=== PATIENT | male | born 1940 | race Native Hawaiian/Other Pacific Islander ===

== ENCOUNTER 2017-03-01 13:31 | Inpatient (IN) | payer OTHER ==
[~2017-03-01] VITALS: Ht 175.3 cm; Wt 64.5 kg
[~2017-03-01 13:31] MED LIST: LORA0.5T17 PO; QUET100T2 PO; SENNA-S1 TAB PO
--- NOTE | 2017-03-01 15:25 | NUR ---
PT ADMITTED FROM [facility]. PT AWAKE AND CONFUSED
[2017-03-01 15:45] VITALS: BP 142/83; TEMP 99.8
[2017-03-01 16:15] VITALS: BP 123/99
--- NOTE | 2017-03-01 16:30 | NUR ---
PT ATTEMPTING TO GET OOB. PT ASSISTED INTO CHAIR. FAMILY AT SIDE
[2017-03-01 16:41] VITALS: BP 143/93; TEMP 99.5; BMI 23.6
[2017-03-01] MEDS ORDERED: LIPITOR20 MG PO (17:27)
--- NOTE | 2017-03-01 17:30 | NUR ---
PT PULLING AT LEAD WIRES AND PRESSURE CUFF.
[2017-03-01 17:45] VITALS: BP 127/62; TEMP 97.5
--- NOTE | 2017-03-01 17:50 | NUR ---
PT ASSISTED OUT OF CHAIR, AMBULATING WITH ASSIST X1, PT LEANING BACKWARD, UNSTEADY GAIT NOTED. TOLERATED WELL.
--- NOTE | 2017-03-01 18:00 | NUR ---
BUTTOCK RED, PT CLEANED AND DRYED
--- NOTE | 2017-03-01 18:27 | NUR ---
PT CURRENTLY LYING PRONE, RESTING WITH EYES CLOSED
--- NOTE | 2017-03-01 19:15 | NUR ---
DR DALTON FINK MD REMINDED THAT PTS SODIUM WAS 154 THIS AM AND THAT PT WAS NOW RECIEVING NS @125ML/HR. NO NEW ORDERS.
--- NOTE | 2017-03-01 19:20 | NUR ---
ATIVAN 2MG GIVEN IV FOR AGITATION.
--- NOTE | 2017-03-01 19:45 | NUR ---
PT PULLING IV TUBING. PT UNABLE TO UNDERSTAND PROCEDURES AND SIGNIFICANCE OF PROCEDURES. IV RESTARTED IN RIGHT UPPER ARM WITH 20 CATHETER PER ONE ATTEMPT. NS 1000CC'S AT 125CC/HR INFUSING IN THIS SITE.
--- NOTE | 2017-03-01 20:02 | NUR ---
RESPIRATORY THERAPIST AT BEDSIDE FOR TREATMENT.
[2017-03-01 20:45] VITALS: BP 136/90; TEMP 98
--- NOTE | 2017-03-01 21:17 | NUR ---
NURSE PLACE NASAL CANNULA ON PT WHILE PT SLEEPING.
[2017-03-01] MEDS ORDERED: PANTPAK PO (22:11)
[2017-03-01] MEDS ORDERED: METAMUCIL0.52 GM OR (22:14)
[2017-03-01] MEDS ORDERED: DONE5TAB PO (22:16)
[2017-03-01] MEDS ORDERED: ARIPIPRAZOLE5 MG PO (22:16)
[2017-03-01] MEDS ORDERED: ESCI10TA PO (22:17)
[2017-03-01] MEDS ORDERED: NAMENDA5 MG OR (22:20)
[2017-03-01] MEDS ORDERED: MUCINEX600 MG OR (22:21)
[2017-03-01] MEDS ORDERED: ALUMSUS6 PO (22:29)
[2017-03-01] MEDS ORDERED: TYLENOL325 MG OR (22:30)
--- NOTE | 2017-03-01 22:43 | NUR ---
PT AWAKE PICKING AT COVERS. 02 SAT 94%. PT NOT ATTEMPTING TO REMOVE O2. NURSE AT BEDSIDE.
[2017-03-01] MEDS ORDERED: EMOLOIN22 (22:50)
[2017-03-01] MEDS ORDERED: HALO5INJ3 (22:54)
[2017-03-01] MEDS ORDERED: ACET650S18 RE (22:57)
[2017-03-01] MEDS ORDERED: ALBUSOL IN (22:58)
[2017-03-01] MEDS ORDERED: [UNRECOGNIZED DRUG - OTHER] OR (23:02)
[2017-03-02] VITALS (9 sets, daily range): BP systolic 122–178; BP diastolic 70–94; TEMP 97.8–99.8
--- NOTE | 2017-03-02 | NUR ---
RESPIRATORY THERAPIST PRESENT FOR BREATHING TREATMENT.
--- NOTE | 2017-03-02 01:22 | NUR ---
PT MUMBLING, NURSE UNABLE TO UNDERSTAND SPEECH. 02 REAPPIED PER NASAL CANNULA PAST PT PULLING OFF.
--- NOTE | 2017-03-02 02:09 | NUR ---
PT AGITATED, PULLING AT IV SITE. MEDICATED WITH ATIVAN 2MG IV ORDERED.
--- NOTE | 2017-03-02 03:17 | NUR ---
RESPIRATORY THERAPIST PRESENT FOR BREATHING TREATMENT. O2 SATURATION 90%, PULSE 80.
--- NOTE | 2017-03-02 03:30 | NUR ---
PT HAD LARGE VOID. DIAPER CHANGED. DRAW SHEET AND CHUX CHANGED. 02 SATURATION 94%. PT PULLING AT ELECTRODES AND IV TUBING. NURSE HELD PT HAND TO CALM.
[2017-03-02 06:33] LABS: PLATELET COUNT 218 K/uL (142-355)
--- NOTE | 2017-03-02 07:45 | NUR ---
AM ASSESSMENT DONE. PT RESTING QUIETLY WITH EYES CLOSED. WILL CONTINUE TO MONITOR.
[2017-03-02 07:49] LABS: POTASSIUM 3.3 mmol/L (3.6-5.2)
--- NOTE | 2017-03-02 08:15 | NUR ---
PT'S DIAPER WET THROUGH SHEET. PT CLEANED AND DRIED, SHEETS CHANGED. PT REPOSITIONED. MOUTH CARE DONE.
--- NOTE | 2017-03-02 11:15 | NUR ---
DR. HOFFMAN HERE TO SEE PT.
--- NOTE | 2017-03-02 11:45 | NUR ---
15F YUNG CATH INSERTED VIA TERRITORY DEVELOPMENT MANAGER. PT ROXANNA WELL. URINE COLLECTED CLEAR AND YELLOW AND SENT TO THE LAB.
--- NOTE | 2017-03-02 12:30 | NUR ---
PT TRYING TO GET OUT OF BED. MEDS GIVEN. WILL CONT TO MONITOR.
--- NOTE | 2017-03-02 14:15 | NUR ---
PT RESTING QUIETLY WITH EYES CLOSED. WILL CONTINUE TO MONITOR.
--- NOTE | 2017-03-02 16:00 | NUR ---
GAVE PT A BATH. ORAL CARE AND SHANNON CARE DONE. BUTTOCK CREAM APPLIED. LINENS CHANGED, GOWN PUT ON. MOUTH CARE DONE. PT REPOSITIONED.
--- NOTE | 2017-03-02 17:29 | NUR ---
FAMILY AT BEDSIDE.
--- NOTE | 2017-03-02 18:06 | NUR ---
FAMILY AT BEDSIDE. NAD NOTED AT THIS TIME.
--- NOTE | 2017-03-02 19:09 | NUR ---
PT PULLING AT IV'S AND GOWN. MEDS GIVEN ORDERED AT THIS TIME. WILL CONTINUE TO MONITOR.
--- NOTE | 2017-03-02 19:12 | NUR ---
POST TYLENOL TEMP 99.8 AT THIS TIME. WILL CONTINUE TO MONITOR.
--- NOTE | 2017-03-02 20:00 | NUR ---
RESP AT BEDSIDE GIVING BREATHING TX AT THIS TIME.
--- NOTE | 2017-03-02 20:53 | NUR ---
PT RESTING QUIETLY. NAD NOTED. WILL CONTINUE TO MONITOR.
--- NOTE | 2017-03-02 21:54 | NUR ---
O2 SAT 92% AT THIS TIME. 02 AT 2LPM VIA NC PLACED ON PT AT THIS TIME WHILE PT RESTING. WILL CONTINUE TO MONITOR.
--- NOTE | 2017-03-02 22:52 | NUR ---
100 ML BAG OF ALBUMIN SPIKED AND HUNG AT THIS TIME RUNNING BY GRAVITY.
--- NOTE | 2017-03-02 23:39 | NUR ---
PT TURNED AND REPOSITIONED AT THIS TIME. MOUTH CARE ALSO DONE AT THIS TIME. PT TOLERATED WELL. O2 AT 3LPM IN USE AT THIS TIME. PT APPEARS TO BE RESTING WELL. NAD NOTED. WILL CONTINUE TO MONITOR.
[2017-03-03] VITALS (9 sets, daily range): BP systolic 136–168; BP diastolic 73–93; TEMP 97.3–99.4
--- NOTE | 2017-03-03 00:13 | NUR ---
RESP THERAPIST AT BEDSIDE GIVING BREATHING TX
--- NOTE | 2017-03-03 00:56 | NUR ---
PT IN BED RESTING WITH EYES CLOSED. NAD NOTED. O2 AT 2LPM VIA NC IN USE AT THIS TIME. BREATHING IS EQUAL AND UNLABORED. WILL CONTINUE TO MONITOR.
--- NOTE | 2017-03-03 04:59 | NUR ---
AM LABS DRAWN AT THIS TIME. PT TOLERATED WELL. PT WAS ALSO TURNED AND REPOSITIONED AT THIS TIME. WILL CONTINUE TO MONITOR.
--- NOTE | 2017-03-03 05:41 | NUR ---
PT IN BED RESTING QUIETLY WITH EYES CLOSED. NAD NOTED. O2 AT 2LPM VIA NC IN USE AT THIS TIME. WILL CONTINUE TO MONITOR.
[2017-03-03 05:45] LABS: POTASSIUM 3.3 mmol/L (3.6-5.2)
[2017-03-03 06:14] LABS: PLATELET COUNT 187 K/uL (142-355)
--- NOTE | 2017-03-03 07:30 | NUR ---
AM ASSESSMENT DONE.
--- NOTE | 2017-03-03 08:15 | NUR ---
MOUTH CARE DONE. PT REPOSITIONED.
--- NOTE | 2017-03-03 10:00 | NUR ---
AT BEDSIDE. [facility] FOR DR. HOFFMAN HERE TO SPEAK WITH .
--- NOTE | 2017-03-03 13:27 | NUR ---
DR. RAYGOZA HERE TO SEE PT. SPEAKING WITH PT.
--- NOTE | 2017-03-03 14:09 | NUR ---
FAMILY AT BEDSIDE.
--- NOTE | 2017-03-03 16:14 | NUR ---
FAMILY AT BEDSIDE. NAD NOTED AT THIS TIME.
--- NOTE | 2017-03-03 17:14 | NUR ---
PT REPOSITIONED. WILL CONTINUE TO MONITOR.
--- NOTE | 2017-03-03 19:20 | NUR ---
PT TURNED AND REPOSITIONED AT THIS TIME. PT TOLERATED WELL. WILL CONTINUE TO MONITOR.
--- NOTE | 2017-03-03 20:06 | NUR ---
RESP AT BEDSIDE DOING TX
[2017-03-04] VITALS (30 sets, daily range): BP systolic 128–201; BP diastolic 59–91; TEMP 98.7–100.4
--- NOTE | 2017-03-04 00:31 | NUR ---
PT APPEARS RESTLESS AND IS PULLING AT COVERS AND IV. PT IS MUMBLING BUT IS NOT UNDERSTOOD. NURSE AT BEDSIDE
--- NOTE | 2017-03-04 02:12 | NUR ---
PT APPEARS AGGITATED AND IS PULLING AT GOWN AND IVS. PT ATTEMPTED TO GET OOB. MEDICATION ADMINISTERED AT THIS TIME PRESCRIBED.
--- NOTE | 2017-03-04 02:54 | NUR ---
PT TURNED AND REPOSOTIONED. MOUTH CARE ALSO DONE. PT TOLERATED WELL. PT APPEARS CALMER THAN EARLIER IN THE SHIFT. HYDRO STATION SUPERVISOR LEADS AND O2 REAPPLIED AT THIS TIME. PT IS NOT ATTEMPTING TO REMOVE THEM. BED IS LOCKED AND IN LOWEST POSITION WITH SIDE RAILS UP. WILL CONTINUE TO MONITOR.
--- NOTE | 2017-03-04 05:45 | NUR ---
AM LABS DRAWN AT THIS TIME
[2017-03-04 06:10] LABS: PLATELET COUNT 201 K/uL (142-355)
[2017-03-04 06:48] LABS: POTASSIUM 3.6 mmol/L (3.6-5.2)
--- NOTE | 2017-03-04 07:39 | NUR ---
RECIEVED REPORT AM ASSESSEMENT DONE REMOVED EXTRA BLANKETS TEMP 99.8 AX. SAT 92% REPLACED O2 AT 2L NC. SCATTERED COARSE RONCHI THROUGH OUT LUNG CARREON. BOTH SIDES. PT DROWSY. MOANING AT TIME. PT SCHEDULED FOR PEG THIS AM FAMILY MEMBERS HERE.
--- NOTE | 2017-03-04 08:08 | NUR ---
FAMILY MEMBERS AT BEDSIDE, OR CREW HERE, PT TO OR VIA BED FOR PEG INSERTION. IV FLUIDS REMAIN. PT WITH O2 AT 2L. REPORT TEMP 99.8 AX TO OR CREW.
--- NOTE | 2017-03-04 09:10 | NUR ---
RECIEVED REPORT PT BACK FROM OR. HOB UP MOANING, COARSE BREATH SOUNDS. HOB UP MOUTH CARE DONE, SMALL FOOD PARTICLES FOUND BACK OF MOUTH. ON MONITOR, RESUME IV FLUIDS. N RECIEVED AM MEDS ORDERED.
--- NOTE | 2017-03-04 09:30 | NUR ---
PT MOANING, NO FACIAL GRIMACE, MOANING OUT SPOKE WITH DR RAYGOZA. RECIEVED ORDER FOR MORPHINE 1 MG. HOB UP WEARING O2 AT 2L SAT 93%.
--- NOTE | 2017-03-04 10:22 | NUR ---
PT MOANING LESS AND LESS MORPHINE HELD FOR NOW PT HAS CALM DOWN. DRESSING TO PEG INACT DRY CLEAN INTACT. PT RESTING QUIETLY. IV FLUIDS CONTINUE. JOEY HOFFMAN'S NURSE VISITED.
--- NOTE | 2017-03-04 12:00 | NUR ---
DR HOFFMAN VISITED. WILL COME BACK. PT REPOSITIONED IN BED HOB UP CONTINUES TO SAT WELL SAT 98% WEARING O2 AT 2L NC. RESP IRREGULAR. RECIEVED BREATHING TX BREATH SOUNDS CLEAR. B/P 142/75. SHANNON CARE DONE. PEG DRAINING TO GRAVITY GREEN COLORED EMESIS.
--- NOTE | 2017-03-04 14:00 | NUR ---
PT TURNED AND REPOSITIONED , FAMILY MEMBERS HERE FOR VISIT. PT RESPONDING TO THEM SOME. SAYING A FEW WORDS. WILL NOT LEAVE O2 ON SAT 94% ROOM AIR, BREATH SOUNDS IMPROVED AFTER COUGHING AND SUCTION THIS AM DRESSING TO ABD INTACT PT WILL REACH FOR TUBE. TUBE COVERED.
--- NOTE | 2017-03-04 16:00 | NUR ---
PT FROWNING RECIEVED MORPHINE 1 MG FOR PAIN PT A LITTLE RESTLESS, PULLED AT TUBE PEG. INTACT AND REDRESS SITE, SMALL AMOUT DRIED BLOOD, DRAINING SMALL AMOUNT EMESIS GREEN COLORES TO GRAVITY DRAINAGE AT BED SIDE. PT TURNED TO LEFT SIDE MOUTH CARE DONE. BED BATH SKIN CARE DONE.
--- NOTE | 2017-03-04 17:08 | NUR ---
RESTING ON LEFT SIDE RESP IRREGULAR AT TIMES SAT 97% WEARING 02 AT 2L NC. IV FLUIDS INFUSING WITHOUT DIFFICULTY. EJ FROM SPEECH THERAPY VISITED. PT TO REMAIN NPO STATUS.
--- NOTE | 2017-03-04 18:05 | NUR ---
PATIENT AWAKE TALKING A LITTLE HARD TO UNDERSTAND PICKING AT IV LINES, PULLED O2 OFF, WILL NOT WEAR O2 SAT 92% ON ROOM AIR. HOB UP. BLANKET COVERED PEG TUB AND YUNG TUBE SO PT WILL NOT PULL ON THEM. RECIEVED IV MEDS ORDERED. PT REMAINS NPO. FREQUENT MOUTH CARE.
--- NOTE | 2017-03-04 19:30 | NUR ---
CALLED TO CHECK ON PATIENT CONDITION. ADVISED SHE WOULD BE BACK TO VISIT TOMORROW MORNING.
[2017-03-05] VITALS (23 sets, daily range): BP systolic 94–169; BP diastolic 70–99; TEMP 99–99.6
--- NOTE | 2017-03-05 02:18 | NUR ---
PATIENT REPOSITIONED IN BED, ALL LINES AND LEADS REATTACHED. PATIENT LAYING ON BACK PULLING AT COVERS AND LINES. NO ACUTE DISTRESS NOTED.
--- NOTE | 2017-03-05 06:00 | NUR ---
BLOOD DRAWN AND SENT TO LAB. NO COMPLICATIONS. NO ACUTE DISTRESS NOTED.
[2017-03-05 06:27] LABS: PLATELET COUNT 212 K/uL (142-355)
[2017-03-05 06:53] LABS: POTASSIUM 3.9 mmol/L (3.6-5.2)
--- NOTE | 2017-03-05 07:25 | NUR ---
RESTING QUIETLY HOB UP AM ASSESSEMENT DONE. PT PULLING AT MEDICAL LINES. IV LINE HIDDEN PEG COVERED.
--- NOTE | 2017-03-05 09:57 | NUR ---
PATIENT TURNED AND REPOSITIONED IN BED HOB UP. PATIENT CALLING OUT, CHEST X RAY DONE. FAMILY MEMBERS HERE TO VISIT.
--- NOTE | 2017-03-05 10:34 | NUR ---
PT RESTLESS PULLING AT IV LINES. PT'S FELT LIKE HE MAY BE GETTING AGITATED. ATIVAN 2 MG IV FOR AGITATION. JOEY, DR HOFFMAN'S NURSE VISITED.
--- NOTE | 2017-03-05 12:45 | NUR ---
RESTING QUIETLY AFTER BATH. MEDS EFFECTIVE RESTING ON LEFT SIDE. WEARING O2 AT 2 L NC. PT'S VISITED.
--- NOTE | 2017-03-05 13:24 | NUR ---
DR HOFFMAN VISITED CHECKED PT. WILL BEGAN TO FEED PT AFTER DIET CONSULT DONE. PT RESTING QUIETLY, HOB UP. VISITED.
--- NOTE | 2017-03-05 14:30 | NUR ---
PT TURNED TO RIGHT SIDE TURN FROM SIDE TO SIDE TRIED TO KEEP OFF BACK. PT RESTING WELL THIS AFTERNOON. WOUND CARE TO COCCYX STAGE 2 DECUB APPLIED OINT LEFT OPEN TI AIR APPEARS TO BE IMPROVING.
--- NOTE | 2017-03-05 16:33 | NUR ---
DIET UNABLE TO SEE PT UNTIL TOMORROW REPORT TO DR HOFFMAN. RECIEVED ORDERS PT UP IN BED CHECKED RESIDUAL NONE. RECIEVED 1/2 CAN 2 YANA FOLLOWED BY 60 ML WATER FED BY GRAVITY ROXANNA WELL HOB UP. EJ FROM SPEECH THERAPY VISITED, AT BEDSIDE OBSERVED FEEDING.
--- NOTE | 2017-03-05 17:00 | NUR ---
RESTING IN BED FAMILY BACK FOR VISIT. MOUTH CARE DONE. PT ROXANNA FEEDING WELL NO PROBLEMS NOTED.
--- NOTE | 2017-03-05 19:20 | NUR ---
RCD PT ORIENTED TO NAME BUT LETHARGIC HOB ELEVATED,REFUSES O2 PULLS OFF O2 SAT 96% .MONITOR SR PEG DRESSSING CLEAN/DRY.
--- NOTE | 2017-03-05 20:00 | NUR ---
TURNED AND POSITIONED WENT HOME RESTLESS PULLING AT RASHMI YUNG, IV TUBING MONITOR SR.
--- NOTE | 2017-03-05 21:38 | NUR ---
PT SHAKING SIDE RAILS. ATIVAN 2MG GIVEN IV
--- NOTE | 2017-03-05 22:00 | NUR ---
1/2 CAN PRO YANA GIVEN VIA PEG TUBE. FLUSHED WITH 60CC'S H2O. PT HAD SMALL B.M. CLEANED,
--- NOTE | 2017-03-05 23:28 | NUR ---
PT RESTING WITH EYES CLOSED AT PRESENT.
[2017-03-06 01:00] VITALS: BP 138/75; TEMP 99
[2017-03-06 02:00] VITALS: BP 118/65
--- NOTE | 2017-03-06 03:56 | NUR ---
650mg tylenol rectal suppository given rectally for axillary temp of 100.0
--- NOTE | 2017-03-06 04:00 | NUR ---
RESIDUAL 15CC'S. PT GIVEN 1/2 CAN TWO YANA GIVEN VIA PEG TUBE, FLUSHED WITH 60CC'S H20.
--- NOTE | 2017-03-06 05:20 | NUR ---
LABS DRAWN. TO LAB
[2017-03-06 05:47] LABS: PLATELET COUNT 258 K/uL (142-355)
[2017-03-06 05:57] LABS: POTASSIUM 3.9 mmol/L (3.6-5.2)
--- NOTE | 2017-03-06 07:30 | NUR ---
AM ASSESSMENT DONE.
[2017-03-06 08:08] VITALS: BP 128/83; TEMP 97.8
--- NOTE | 2017-03-06 09:00 | NUR ---
10ML OF RESIDUAL IN PEG TUBE. MED GIVEN AND FLUSHED WITH 60ML OF WATER. FED PT 1/2 CAN OF 2 YANA AND FLUSHED WITH 60ML OF WATER. PT ROXANNA WELL.
--- NOTE | 2017-03-06 09:14 | NUR ---
PT REPOSITIONED. WILL CONTINUE TO MONITOR.
--- NOTE | 2017-03-06 11:00 | NUR ---
MOUTH CARE DONE. SHANNON CARE DONE. GAVE PT A BATH. CHANGED BED LINENS AND GOWN. PT REPOSITIONED.
[2017-03-06 12:00] VITALS: BP 158/92; TEMP 101
--- NOTE | 2017-03-06 12:00 | NUR ---
AX TEMP 101. WILL MEDICATE.
--- NOTE | 2017-03-06 13:00 | NUR ---
AX TEMP 100. WILL CONTINUE TO MONITOR.
--- NOTE | 2017-03-06 13:45 | NUR ---
DR. HOFFMAN HERE TO SEE PT.
--- NOTE | 2017-03-06 14:20 | NUR ---
PT COUGHING AND CHOKING ON SECRETIONS. PT SUCTIONED. PT ROXANNA WELL. WILL CONTINUE TO MONITOR.
--- NOTE | 2017-03-06 15:45 | NUR ---
LAB HERE FOR BLOOD CULTURES.
[2017-03-06 16:00] VITALS: BP 132/70; TEMP 99.8
[2017-03-06 16:11] VITALS: BP 143/97; TEMP 97.5; BMI 24.0
--- NOTE | 2017-03-06 17:57 | NUR ---
PT REPOSITIONED. WILL CONTINUE TO MONITOR.
--- NOTE | 2017-03-06 18:06 | NUR ---
PT HAD A VERY SMALL BM. PT CLEANED.
[2017-03-07] VITALS (7 sets, daily range): BP systolic 111–140; BP diastolic 60–84; TEMP 98.2–100
--- NOTE | 2017-03-07 00:15 | NUR ---
No residual noted with pegtube. 25cc of H2O plus 1/2 can of Jevity 1.5 and 25cc of H20 given to Pt through pegtube without difficulty. Pt tolerated well.
--- NOTE | 2017-03-07 05:45 | NUR ---
No residual noted at Pegtube. Pt's pegtube flushed with 25ml of H2O and fed 1 can of Jevity and flushed with 25cc of H2O without difficulty. Pt tolerated well and no residual noted after feeding.
[2017-03-07 06:14] LABS: PLATELET COUNT 244 K/uL (142-355)
[2017-03-07 06:25] LABS: POTASSIUM 3.7 mmol/L (3.6-5.2)
--- NOTE | 2017-03-07 07:30 | NUR ---
AM ASSESSMENT DONE.
--- NOTE | 2017-03-07 09:00 | NUR ---
30ML RESIDUAL. MEDS GIVEN AND FLUSHED WITH WATER.
--- NOTE | 2017-03-07 11:11 | NUR ---
FAMILY AT BEDSIDE.
--- NOTE | 2017-03-07 11:40 | NUR ---
DR. HOFFMAN HERE TO SEE PT.
--- NOTE | 2017-03-07 12:15 | NUR ---
IV TO R UPPER ARM D/C'D WITH TIP INTACT PRESSURE DRESSING APPLIED. IV STARTED IN R FA WITH A 22G X 5 IVFS INFUSING WITHOUT ANY PROBLEMS.
--- NOTE | 2017-03-07 12:25 | NUR ---
RESIDUAL 60ML. FEEDING HELD AT THIS TIME. WILL CONTINUE TO MONITOR.
--- NOTE | 2017-03-07 13:15 | NUR ---
PT MOANING. PT HAS NOT HAD A BM IN A FEW DAYS EXCEPT A SMALL ONE LAST NIGHT. PT ACTS LIKE HIS ABD HURTS. DR. HOFFMAN NOTIFIED. RECEIVED NEW ORDER.
--- NOTE | 2017-03-07 13:30 | NUR ---
RAD AT BEDSIDE FOR KUB.
--- NOTE | 2017-03-07 14:10 | NUR ---
JOSE RESULTS REPORTED TO DR. HOFFMAN. NO NEW ORDERS.
--- NOTE | 2017-03-07 15:46 | NUR ---
GAVE REPORT TO RIGOBERTO BAUER RN.
--- NOTE | 2017-03-07 16:20 | NUR ---
RESIDUAL 15ML. FED PT 1/2 CAN JEVITY 1.5 AND FLUSHED WITH 60ML OF H2O BEFORE AND AFTER. PT ROXANNA WELL.
--- NOTE | 2017-03-07 16:45 | NUR ---
ABD BINDER PLACED ON PT TO PROTECT PEG TUBE. REPOSITIONED PT.
--- NOTE | 2017-03-07 17:05 | NUR ---
PT TRANSFERRED TO ROOM 1112 VIA BED IN STABLE COND. ORIENTED PT'S FAMILY TO ROOM SURROUNDINGS.
--- NOTE | 2017-03-07 23:20 | NUR ---
TYLENOL 650 MG SUPP ADMINISTERED AT THIS TIME FOR TEMP OF 99.8 AXILLARY
--- NOTE | 2017-03-07 23:40 | NUR ---
PEG TUBE FEEDING ADMINISTERED AT THIS TIME. NO RESIDUAL NOTED. FLUSHED WITH 60 CC'S OF H2O BEFORE AND AFTER FEEDING. FEEDING WITH 1 CAN OF JEVITY 1.5. PT TOLERATED WELL. IS AT THE BEDSIDE. VOICES NO COMPLAINTS AT THIS TIME. WILL CONTINUE TO MONITOR.
[2017-03-08] VITALS: BP 117/65; TEMP 100
[2017-03-08 04:00] VITALS: BP 123/67; TEMP 99.6
[2017-03-08 05:26] LABS: POTASSIUM 3.9 mmol/L (3.6-5.2)
[2017-03-08 05:27] LABS: PLATELET COUNT 250 K/uL (142-355)
[2017-03-08 07:57] VITALS: BP 180/75; TEMP 98.8
[2017-03-08 11:53] VITALS: BP 172/84; TEMP 100.3
[2017-03-08 15:50] VITALS: BP 135/76; TEMP 101.9
--- NOTE | 2017-03-08 19:39 | NUR ---
PT RUNNING A TEMP @ 1200 OF 100.3 AXILLARY, TYLENOL SUPPOSITORY GIVEN @ 1245, RECHECKED TEMP NUMEROUS TIMES, TEMP REMAINS THE SAME, @ 1530 TEMP CHECKED RECTALLY PER DR HOFFMAN'S ORDER, TEMP COMING DOWN.
--- NOTE | 2017-03-08 19:43 | NUR ---
@0906 DUODERM APPLIED TO COCCYX PER DR ORDER, STAGE 2 DECUBITUS TO SACRAL AREA NOTED DURING SHIFT ASSESSMENT, WILL CONTINUE TO MONITOR AND PASS ON INFO AT SHIFT CHANGE
[2017-03-08 20:00] VITALS: BP 114/71; TEMP 99.6
--- NOTE | 2017-03-08 22:52 | NUR ---
PT WAS CHECKED ON AT 2009 NO TREATMENT NEEDED AT THIS TIME PATIENT WAS CLEAR O2 SAT 96%
[2017-03-09] VITALS: BP 96/65; TEMP 98.7
--- NOTE | 2017-03-09 00:45 | NUR ---
03/09/17 0030 OXYGEN PLACED ON PATIENT 02 SAT 91-92 PERCENT.RESPIRATORY PRESENT IN ROOM FOR BREATHING TREATMENT.RESPIRATORY SAID PATIENT KEEPS PULLING OFF OXYGEN OUT OF NOSE SO SHE TOOK OXYGEN OFF.NAD NOTED.BROTHER PRESENT AT BEDSIDE.CC
--- NOTE | 2017-03-09 01:00 | NUR ---
03/08/171999 BLOOD SUGAR 151.CC
--- NOTE | 2017-03-09 02:40 | NUR ---
03/09/17 0010 PEG TUBE CHECKED 5ML RESIDUAL IN TUBE.FLUSHED WITH 60ML H20.PEG TUBE FEEDING GIVEN PER GRAVITY TOLERATED WELL.FLUSHED PEG TUBE WITH 120ML H20 TOLERATED WELL. REPOSTIONED PATIENT FOR COMFORT.PATIENT DROWSY BUT DOES AROUSES WHEN TOUCHED AND MOVED.CC
[2017-03-09 04:00] VITALS: BP 135/74; TEMP 98.4
[2017-03-09 05:57] LABS: PLATELET COUNT 250 K/uL (142-355)
[2017-03-09 06:00] LABS: POTASSIUM 3.9 mmol/L (3.6-5.2)
[2017-03-09 08:00] VITALS: BP 134/65; TEMP 98.6
[2017-03-09 12:00] VITALS: BP 155/71; TEMP 97.9
[2017-03-09 16:00] VITALS: BP 149/73; TEMP 98.2
[2017-03-09 20:05] VITALS: BP 158/81; TEMP 98.4
[2017-03-10] VITALS: BP 164/73; TEMP 97.8
--- NOTE | 2017-03-10 03:17 | NUR ---
03/10/17 0100 PEG TUBE RESIDUAL CHECKED 5ML PULLED BACK WHEN CHECKED.FLUSHED PEG TUBE WITH 60ML H20.JEVITY 1.5 CAN GIVEN BY GRAVITY TOLERATED WELL.FLUSHED PEG TUBE WITH 90ML H20 TOLERATED.PT BRIEF CHANGED WITH STOOL LIGHT BROWN IN COLOR.TURNED AND REPOSTIONED DUODERM TO COCCYX INTACT.S/O PRESENT AT BEDSIDE.CC
[2017-03-10 04:00] VITALS: BP 126/65; TEMP 98.2
[2017-03-10 06:34] LABS: PLATELET COUNT 283 K/uL (142-355)
--- NOTE | 2017-03-10 06:54 | NUR ---
03/10/17 0654 TURNED AND REPOSTIONED ALERT LOOKING AROUND NAD NOTED.CC
[2017-03-10 07:24] LABS: POTASSIUM 3.6 mmol/L (3.6-5.2); SODIUM 135 mmol/L (136-145)
[2017-03-10 08:00] VITALS: BP 155/74; TEMP 98.9
[2017-03-10 12:00] VITALS: BP 142/92; TEMP 99.2
[2017-03-10 16:00] VITALS: BP 136/77; TEMP 100
[2017-03-10 20:00] VITALS: BP 159/87; TEMP 98.1
[2017-03-11] VITALS: BP 174/95; TEMP 98.5
[2017-03-11 04:00] VITALS: BP 136/71; TEMP 97.9
[2017-03-11 06:12] LABS: PLATELET COUNT 305 K/uL (142-355)
[2017-03-11 06:23] LABS: POTASSIUM 3.7 mmol/L (3.6-5.2); SODIUM 136 mmol/L (136-145)
[2017-03-11 08:00] VITALS: BP 130/78; TEMP 99.1
[2017-03-11 11:53] VITALS: BP 124/78; TEMP 98.9
[2017-03-11 16:00] VITALS: BP 145/77; TEMP 99.5
[2017-03-11 20:00] VITALS: BP 180/75; TEMP 99.2
[2017-03-12] VITALS: BP 178/94; TEMP 99.2
--- NOTE | 2017-03-12 01:39 | NUR ---
PEG TUBE FEEDING ADMINISTERED AT THIS TIME. NO RESIDUAL NOTED. 1 CAN OF JEVITY 1.5 ADMINISTERED WITH A 60 ML FLUSH OF H20 BEFORE AND AFTER. PT TOLERATED WELL. HOB ELEVATED AT THIS TIME. WILL CONTINUE TO MONITOR.
[2017-03-12 04:00] VITALS: BP 163/78; TEMP 98.8
[2017-03-12 07:27] LABS: PLATELET COUNT 319 K/uL (142-355)
[2017-03-12 07:44] LABS: POTASSIUM 3.9 mmol/L (3.6-5.2); SODIUM 134 mmol/L (136-145)
[2017-03-12 08:00] VITALS: BP 182/86; TEMP 98.8
[2017-03-12 11:57] VITALS: BP 184/93; TEMP 97.5
[2017-03-12 16:00] VITALS: BP 188/94; TEMP 98
[2017-03-12 20:00] VITALS: BP 162/82; TEMP 98.5
[2017-03-13] VITALS: BP 164/96; TEMP 98.7
--- NOTE | 2017-03-13 01:15 | NUR ---
PEG TUBE FEEDING ADMINISTERED AT THIS TIME. NO RESIDUAL NOTED. FLUSHED WITH 60 MLS OF H20 BEFORE AND AFTER FEEDING. PT TOLERATED WELL. HOB ELEVATED.
[2017-03-13 04:00] VITALS: BP 180/89; TEMP 98.3
[2017-03-13 07:16] LABS: PLATELET COUNT 315 K/uL (142-355)
[2017-03-13 08:00] VITALS: BP 148/87; TEMP 98.7
[2017-03-13 08:36] LABS: POTASSIUM 4.2 mmol/L (3.6-5.2); SODIUM 136 mmol/L (136-145)
[2017-03-13 12:00] VITALS: BP 151/83; TEMP 98.8
--- NOTE | 2017-03-13 16:21 | NUR ---
IV D/C'd. DISCHARGE INSTRUCTIONS SIGNED AND GIVEN Pt. TO TRANSFERRED BY [facility] TO [facility].
== END 2017-03-13 16:21 | disposition home or self-care (01) | DRG 193 ==
LOC: ICU 13:31 → MED/SURG 03-07 17:05
PROVIDERS: Emergency Medicine; Internal Medicine; ADMIT Psychiatry & Neurology Addiction Psychiatry
PROC: 0DH63UZ Insertion of Feeding Device into Stomach, Percutaneous Approach (ICD-10-PCS; principal; 2017-03-04)
DX: J18.8 Other pneumonia, unspecified organism (principal); L89.153 Pressure ulcer of sacral region, stage 3; E87.0 Hyperosmolality and hypernatremia; R13.12 Dysphagia, oropharyngeal phase; K44.9 Diaphragmatic hernia without obstruction or gangrene; K29.60 Other gastritis without bleeding; G30.8 Other Alzheimer's disease; F02.80 Dementia in other diseases classified elsewhere, unspecified severity, without behavioral disturbance, psychotic disturbance, mood disturbance, and anxiety; R53.1 Weakness; E83.41 Hypermagnesemia; E88.09 Other disorders of plasma-protein metabolism, not elsewhere classified; E87.6 Hypokalemia; R50.9 Fever, unspecified; R62.7 Adult failure to thrive
CPT/HCPCS: 36415; 80053; 80200; 80202; 82272; 82570; 82948; 83735; 84300; 84540; 85027; 87015; 87040; 87045; 87205; 87328; 87329; 87899; 94640; 94664; 94760; 96372; J1450; J1630; J1650; J2001; J2060; J2270; J2704; J3010; J3260; J3480; J3490; P9047

== ENCOUNTER 2017-03-20 11:30 | Inpatient (IN) | payer OTHER ==
[~2017-03-20 11:30] MED LIST changes: +ACET650S18 RE; +ALBUSOL IN; +ALUMSUS6 PO; +ARIPIPRAZOLE5 MG PO; +DONE5TAB PO; +EMOLOIN22; +ESCI10TA PO; +HALO5INJ3; +LIPITOR20 MG PO; +METAMUCIL0.52 GM OR; +MUCINEX600 MG OR; +NAMENDA5 MG OR; +PANTPAK PO; +TYLENOL325 MG OR; +[UNRECOGNIZED DRUG - OTHER] OR
== END 2017-03-26 13:02 | disposition still patient (30) ==
LOC: PAVC 11:30
PROVIDERS: ADMIT Internal Medicine
DX: M62.81 Muscle weakness (generalized) (principal); R13.12 Dysphagia, oropharyngeal phase; L89.312 Pressure ulcer of right buttock, stage 2; R47.02 Dysphasia; Z93.1 Gastrostomy status; L89.150 Pressure ulcer of sacral region, unstageable
CPT/HCPCS: 80053; 80061; 85027; 87081

== ENCOUNTER 2017-03-22 04:24 | Outpatient (CLI) | payer OTHER ==
[2017-03-22 06:36] LABS: POTASSIUM 3.7 mmol/L (3.6-5.2); SODIUM 136 mmol/L (136-145)
[2017-03-22 06:56] LABS: PLATELET COUNT 173 K/uL (142-355)
== END 2017-03-22 19:12 | disposition home or self-care (01) ==
LOC: LAB 04:24
PROVIDERS: Internal Medicine
DX: D50.8 Other iron deficiency anemias (principal); E78.4 Other hyperlipidemia; Z13.89 Encounter for screening for other disorder
CPT/HCPCS: 80053; 80061; 85027; 87081

== ENCOUNTER 2017-03-26 14:20 | Inpatient (IN) | payer OTHER | END 2017-04-26 10:01 | disposition still patient (30) | LOC: PAVC 14:20 | PROVIDERS: ADMIT Internal Medicine | DX: M62.81 Muscle weakness (generalized) (principal); R13.12 Dysphagia, oropharyngeal phase; L89.312 Pressure ulcer of right buttock, stage 2; R47.02 Dysphasia; Z93.1 Gastrostomy status; L89.150 Pressure ulcer of sacral region, unstageable | CPT/HCPCS: 87081 ==

== ENCOUNTER 2017-03-29 18:09 | Emergency (ER) | payer OTHER ==
[~2017-03-29] VITALS: Ht 175.3 cm; Wt 63.0 kg
[2017-03-29 19:32] LABS: PLATELET COUNT 243 K/uL (142-355)
[2017-03-29 19:36] LABS: POTASSIUM 3.9 mmol/L (3.6-5.2); SODIUM 134 mmol/L (136-145)
[2017-03-29 20:16] VITALS: BP 110/55; TEMP 98.8
== END 2017-03-29 20:32 | disposition home or self-care (01) ==
LOC: ED 18:09
PROVIDERS: Specialist
PROC: 0T9B70Z Drainage of Bladder with Drainage Device, Via Natural or Artificial Opening (ICD-10-PCS; principal; 2017-03-29)
DX: J90 Pleural effusion, not elsewhere classified (principal); T17.820A Food in other parts of respiratory tract causing asphyxiation, initial encounter; K94.29 Other complications of gastrostomy
CPT/HCPCS: 36415; 36600; 51702; 80053; 81000; 82550; 82553; 82805; 83735; 84484; 85027; 96374; 99284

== ENCOUNTER 2017-04-01 04:59 | Outpatient (CLI) | payer OTHER ==
[2017-04-01 06:36] LABS: PLATELET COUNT 197 K/uL (142-355)
== END 2017-04-01 19:17 | disposition home or self-care (01) ==
LOC: LAB 04:59
PROVIDERS: Internal Medicine
DX: R06.02 Shortness of breath (principal)
CPT/HCPCS: 81000; 85027

== ENCOUNTER 2017-04-01 13:13 | Inpatient (IN) | payer OTHER ==
[~2017-04-01] VITALS: Ht 175.3 cm; Wt 66.8 kg
--- NOTE | 2017-04-01 12:55 | NUR ---
PT TO [facility] B[facility] FROM [facility],DIRECT ADMIT FROM [facility] WITH DX LLL PNEUMONIA.HX DEMENTIA. COLOR PINK,SKIN W/D,RESSP EVEN & UNLABORED. AT BS.
--- NOTE | 2017-04-01 13:03 | NUR ---
ASSESMENT PART ONE PER MO BOSS RN & IV INSERTED X 1 22G INSYTE L FA X 1 STICK. REMAINS AT BS.
[2017-04-01 13:52] VITALS: BP 108/63; TEMP 98.6; Ht 175.3 cm; Wt 66.8 kg
--- NOTE | 2017-04-01 15:29 | NUR ---
CULTURE OF DECUBITUS SACRAL AREA PER [facility] DEPUTY REGISTER OF DEEDS.
[2017-04-01 15:57] VITALS: BP 112/61; TEMP 100.2
--- NOTE | 2017-04-01 17:30 | NUR ---
PT RESTING WITH EYES CLOSED, ANTIBIOTIC INFUSING PER ORDER.FAMILT AT BS.
--- NOTE | 2017-04-01 18:04 | NUR ---
DR RAYGOZA NOTIFIED OF CONSULT DECUBITUS ON SACRUM.
--- NOTE | 2017-04-01 18:28 | NUR ---
PHARM Melodie CALLED TO [facility] ON ROCEPHIN ORDER & MEDS PROFILED ALLERGIES FOR PT. AFTER TALKING WITH PT & PT TALKING WITH HER MOTHER,REPORTED BACK TO [facility]/HIRAL THAT PT HAD TAKEN ROCEPHIN BEFORE.
--- NOTE | 2017-04-01 18:30 | NUR ---
PT WITH NO VOID SINCE ADMIT. REPORTED TO DR RENO. NEW ORDERS.
--- NOTE | 2017-04-01 18:50 | NUR ---
16FR YUNG INSERTED WITHOUT PROBLEMS WITH IMEDIATE RETURN OF MEDIUM YELLOW URINE. SCDS &TEDS TO LEGS BILATERAL.
[2017-04-01 20:00] VITALS: BP 102/62; TEMP 98.3
[2017-04-02] VITALS: BP 133/71; TEMP 99.6
--- NOTE | 2017-04-02 02:17 | NUR ---
04/01/172049 NIGHT MEDICATION GIVEN.PT GIVEN 60ML FLUSH THEN GIVEN 1/2 CAN OF JEVITY 1.5.FLUSHED WITH ADDITIONAL 60ML WATER TOLERATED WELL.PT S/O STATED SHE THINKS HER IS GETTING TO MUCH OF THE G-TUBE FEEDING AT ONE TIME.TOLD PATIENT THAT I WILL GIVE ONLY 1/2 CAN TONIGHT TO SEE HOW HE WILL TOLERATE IT AND MAY INCREASE IN AM.CC
[2017-04-02 04:00] VITALS: BP 137/47; TEMP 99.6
--- NOTE | 2017-04-02 05:54 | NUR ---
04/02/17 0550 REPOSTIONED PT GRIMMACING HE IS HURTING WHEN MOVED.WILL GIVE SOMETHING FOR PAIN PT ASKED IF HURTING HE SAID I RECKON.CC
[2017-04-02 06:30] LABS: PLATELET COUNT 260 K/uL (142-355)
[2017-04-02 06:48] LABS: POTASSIUM 3.6 mmol/L (3.6-5.2); SODIUM 134 mmol/L (136-145)
[2017-04-02 08:59] VITALS: BP 103/61; TEMP 98.9
--- NOTE | 2017-04-02 11:53 | NUR ---
10ML RESIDUAL OBSERVED AND REPLACED. FLUSHED PEG WITH 60ML OF WATER. MEDICATIONS AND JEVITY 1.2 1 CAN GIVEN. FLUSHED WITH ANOTHER 60ML OF WATER. PT TOLERATED WELL.
[2017-04-02 12:08] VITALS: BP 141/63; TEMP 99.5
--- NOTE | 2017-04-02 15:05 | NUR ---
DR RAYGOZA IN SEEING WOUND FOR CONSULT. 4X4 FLUFF GAUZE REMOVED. FOUL SMELLING BROWNISH DRAINAGE OBSERVED TO DRESSING. DIME SIZE OPENING OBSERVED TO LARGE SACRAL WOUND. REDNESS OBSERVED AROUND WOUND EXTENDING TO LEFT AND RIGHT BUTTOCK. STATED WILL TAKE TO OR FOR WOUND DEBRIDEMENT.
[2017-04-02 16:39] VITALS: BP 116/65; TEMP 102.5
--- NOTE | 2017-04-02 16:40 | NUR ---
PT TO OR FOR WOUND DEBRIDEMENT
--- NOTE | 2017-04-02 17:50 | NUR ---
PT BACK FROM OR
[2017-04-02 21:40] VITALS: BP 111/66; TEMP 100.4
[2017-04-03 00:04] VITALS: BP 117/52; TEMP 98.8
--- NOTE | 2017-04-03 01:34 | NUR ---
04/02/17 2250 PT GRIMMACING SLIGHTY PULLING AT GOWN,PAIN MEDICATION GIVEN PER PEG TUBE.PEG TUBE FEEDING GIVEN JEVITY 1.5 FLUSHED WITH 60ML H20 WATER BEFORE AND FLUSHED WITH 60ML WATER TOLERATED WELL.TURNED AND REPOSTIONED,DSY TO COCCYX INTACT WITH SEROSANGIOUS DRAINAGE WITH SMALL AMOUNT BRIGHT RED BLOOD.DSY REINFORCED WITH 4X4 SECURED WITH PAPER TAPE.S/O PRESENT AT BEDSIDE.CC
[2017-04-03 05:55] LABS: PLATELET COUNT 241 K/uL (142-355)
[2017-04-03 06:01] VITALS: BP 150/70; TEMP 98.5
[2017-04-03 06:16] LABS: POTASSIUM 3.4 mmol/L (3.6-5.2); SODIUM 140 mmol/L (136-145)
--- NOTE | 2017-04-03 06:39 | NUR ---
04/03/17 0630 TURNED AND REPOSTIONED PT HAD SMALL BM TODAY BROWN IN COLOR.CC
[2017-04-03 08:00] VITALS: BP 164/77; TEMP 99.4
--- NOTE | 2017-04-03 09:30 | NUR ---
REMOVED CLONIDINE PATCH FROM R SHOULDER AND NEW PATCH APPLIED TO L SHOULDER. NO RESIDUAL NOTED TO PEG TUBE. FEEDING PROVIDED ORDERED. PT TOLERATED WELL. PT HIGH FOWLERS AT THIS TIME. AT BS.
[2017-04-03 12:00] VITALS: BP 124/62; TEMP 99.2
--- NOTE | 2017-04-03 14:30 | NUR ---
PEG TUBE RESIDUAL CHECKED AND GREATER THAN 60ML AT THIS TIME. FEEDING HELD. WILL RECHECK RESIDUL LATER.
[2017-04-03 16:00] VITALS: BP 120/66; TEMP 99
--- NOTE | 2017-04-03 17:00 | NUR ---
PEG TUBE CHECKED FOR RESIDUAL. NONE NOTED AT THIS TIME. FEEDING PROVIDED ORDERED. PT TOLERATED WELL.
[2017-04-03 20:00] VITALS: BP 165/77; TEMP 97.7
[2017-04-04] VITALS: BP 111/93; TEMP 100.2
[2017-04-04 04:00] VITALS: BP 133/66; TEMP 99.6
--- NOTE | 2017-04-04 04:00 | NUR ---
15 RESIDUAL NOTED FROM PEG TUBE. FLUSHED WITH 60 MLS OF WATER THEN ADMINISTERED ONE CAN OF JEVITY 1.5 AND FLUSHED WITH 60 MLS OF WATER AFTER FEEDING. PT TOLERATED WELL. HOB ELEVATED AT THIS TIME. IS AT THE BEDSIDE AND VOICES NO COMPLAINTS. WILL CONTINUE TO MONITOR.
[2017-04-04 06:10] LABS: PLATELET COUNT 274 K/uL (142-355)
[2017-04-04 06:36] LABS: POTASSIUM 3.6 mmol/L (3.6-5.2); SODIUM 138 mmol/L (136-145)
[2017-04-04 08:00] VITALS: BP 149/79; TEMP 99.3
[2017-04-04 12:00] VITALS: BP 142/70; TEMP 99.9
[2017-04-04 16:00] VITALS: BP 157/78; TEMP 97.9
--- NOTE | 2017-04-04 16:00 | NUR ---
DRESSING CHANGED PER DR RAYGOZA AT . PT TOLERATED WELL.
[2017-04-04 20:00] VITALS: BP 138/72; TEMP 99.6
--- NOTE | 2017-04-04 22:00 | NUR ---
LESS THAN 20 MLS OF RESIDUAL NOTED FROM PEG TUBE. FEEDING ADMINISTERED AT THIS TIME THROUGH PEG AND FLUSHED WITH 60 MLS OF WATER BEFORE AND AFTER FEEDING. PT TOLERATED WELL. HOB ELEVATED AT THIS TIME. IS AT THE BEDSIDE. VOICES NO COMPLAINTS AT THIS TIME. WILL CONTINUE TO MONITOR.
[2017-04-05] VITALS: BP 154/72; TEMP 99.7
[2017-04-05 04:00] VITALS: BP 171/84; TEMP 98.9
[2017-04-05 06:15] LABS: PLATELET COUNT 279 K/uL (142-355)
[2017-04-05 06:29] LABS: POTASSIUM 4.1 mmol/L (3.6-5.2); SODIUM 138 mmol/L (136-145)
[2017-04-05 08:00] VITALS: BP 149/84; TEMP 99.4
--- NOTE | 2017-04-05 10:00 | NUR ---
PATIENT TURNED, DRESSING IS SATURATED WITH CLEAR/YELLOWISH DRAINAGE. DRESSING REMOVED, WOUND CLEANED, NEW DRESSING APPLIED. PATIENT TURNED TO LEFT SIDE. PATIENT DOES NOT TOLERATE ACTIVITY WELL, YELLS OUT. EXPLAINED TO PATIENT AND HIS THE IMPORTANCE OF TURNING HIM FREQUENTLY AND MONITORING THE WOUND.
[2017-04-05 12:00] VITALS: BP 140/73; TEMP 99.1
--- NOTE | 2017-04-05 14:00 | NUR ---
PATIENT HAS ORDERS TO BE TRAN[facility]ERRED [facility]. PATIENT BATHED, WOUND TO COCCYX REPACKED WITH DAKINS IMPREGNATED KERLIX AND COVERED WITH 4X4'S AND ABD PAD. IV REMOVED, BANDAID APPLIED. YUNG CATHETER REMOVED. REPORT CALLED TO THE [facility].
--- NOTE | 2017-04-05 14:45 | NUR ---
PATIENT TRANSPORTED TO THE [facility] VIA BED. ASSISTED STAFF GETTING PATIENT SETTLED IN. PATIENT'S WITH PATIENT AT TIME OF TRANSFER.
== END 2017-04-05 14:45 | DRG 853 ==
LOC: MED/SURG 13:13
PROVIDERS: ADMIT Internal Medicine
PROC: 0JB70ZZ Excision of Back Subcutaneous Tissue and Fascia, Open Approach (ICD-10-PCS; principal; 2017-04-02)
DX: A41.89 Other specified sepsis (principal); J18.8 Other pneumonia, unspecified organism; L89.154 Pressure ulcer of sacral region, stage 4; G30.8 Other Alzheimer's disease; F02.80 Dementia in other diseases classified elsewhere, unspecified severity, without behavioral disturbance, psychotic disturbance, mood disturbance, and anxiety; L89.312 Pressure ulcer of right buttock, stage 2; L89.221 Pressure ulcer of left hip, stage 1; L89.211 Pressure ulcer of right hip, stage 1; B96.20 Unspecified Escherichia coli [E. coli] as the cause of diseases classified elsewhere; B96.4 Proteus (mirabilis) (morganii) as the cause of diseases classified elsewhere
CPT/HCPCS: 36415; 80053; 81000; 83735; 85027; 87040; 87070; 87076; 87077; 87186; 87205; 93005; 94640; 94664; 94760; J1956; J2001; J2704; J3010; J3490

== ENCOUNTER 2017-04-26 10:40 | Inpatient (IN) | payer OTHER | END 2017-05-26 09:38 | disposition still patient (30) | LOC: PAVC 10:40 | PROVIDERS: ADMIT Internal Medicine | DX: Z51.89 Encounter for other specified aftercare (principal) | CPT/HCPCS: 87077; 87086; 87088; 87186 ==

== ENCOUNTER 2017-05-11 16:40 | Outpatient (CLI) | payer OTHER ==
[2017-05-11 17:09] LABS: PLATELET COUNT 234 K/uL (142-355)
== END 2017-05-11 18:00 | disposition home or self-care (01) ==
LOC: LAB 16:40 → LABW 16:40
PROVIDERS: Internal Medicine
DX: R50.9 Fever, unspecified (principal)
CPT/HCPCS: 36415; 81000; 85027; 87077; 87086; 87088; 87186

== ENCOUNTER 2017-05-26 10:06 | Inpatient (IN) | payer OTHER | END 2017-06-26 14:22 | disposition still patient (30) | LOC: PAVC 10:06 | PROVIDERS: ADMIT Internal Medicine ==

== ENCOUNTER 2017-05-27 04:10 | Outpatient (CLI) | payer OTHER | END 2017-05-27 05:10 | disposition home or self-care (01) | LOC: LAB 04:10 | DX: N39.0 Urinary tract infection, site not specified (principal) | CPT/HCPCS: 81000; 87077; 87086; 87088; 87185; 87186 ==

== ENCOUNTER 2017-06-26 15:23 | Inpatient (IN) | payer OTHER | END 2017-07-26 10:32 | disposition still patient (30) | LOC: PAVC 15:23 | PROVIDERS: ADMIT Internal Medicine ==

== ENCOUNTER 2017-07-26 11:04 | Inpatient (IN) | payer OTHER | END 2017-08-26 11:17 | disposition still patient (30) | LOC: PAVC 11:04 | PROVIDERS: ADMIT Internal Medicine ==

== ENCOUNTER 2017-08-15 22:55 | Outpatient (CLI) | payer OTHER | END 2017-08-15 23:30 | disposition home or self-care (01) | LOC: RAD 22:55 | DX: M25.461 Effusion, right knee (principal); I63.8 Other cerebral infarction; G31.89 Other specified degenerative diseases of nervous system ==

== ENCOUNTER 2017-08-26 11:54 | Inpatient (IN) | payer OTHER | END 2017-09-26 11:15 | disposition still patient (30) | LOC: PAVC 11:54 | PROVIDERS: ADMIT Internal Medicine ==

== ENCOUNTER 2017-08-30 02:39 | Outpatient (CLI) | payer OTHER ==
[2017-08-30 04:10] LABS: PLATELET COUNT 189 K/uL (142-355)
[2017-08-30 04:22] LABS: SODIUM 140 mmol/L (136-145)
== END 2017-08-31 05:15 | disposition home or self-care (01) ==
LOC: LAB 02:39
PROVIDERS: Internal Medicine
DX: I10 Essential (primary) hypertension (principal)
CPT/HCPCS: 80053; 80061; 85027

== ENCOUNTER 2017-09-26 12:37 | Inpatient (IN) | payer OTHER | END 2017-10-24 10:40 | disposition still patient (30) | LOC: PAVC 12:37 | PROVIDERS: ADMIT Internal Medicine ==

== ENCOUNTER 2017-10-15 13:26 | Outpatient (CLI) | payer OTHER | END 2017-10-15 19:50 | disposition home or self-care (01) | LOC: LAB 13:26 | DX: R41.82 Altered mental status, unspecified (principal) | CPT/HCPCS: 81000 ==

== ENCOUNTER 2017-10-24 11:06 | Inpatient (IN) | payer OTHER | END 2017-11-24 08:00 | disposition still patient (30) | LOC: PAVC 11:06 | PROVIDERS: ADMIT Internal Medicine ==

== ENCOUNTER 2017-11-24 09:00 | Inpatient (IN) | payer OTHER | END 2017-12-24 10:32 | disposition still patient (30) | LOC: PAVC 09:00 | PROVIDERS: ADMIT Internal Medicine ==

== ENCOUNTER 2017-12-24 11:03 | Inpatient (IN) | payer OTHER | END 2018-01-24 10:26 | disposition still patient (30) | LOC: PAVC 11:03 | PROVIDERS: ADMIT Internal Medicine ==

== ENCOUNTER 2018-01-24 11:09 | Inpatient (IN) | payer OTHER | END 2018-02-23 15:07 | disposition still patient (30) | LOC: PAVC 11:09 | PROVIDERS: ADMIT Internal Medicine ==

== ENCOUNTER 2018-02-23 15:42 | Inpatient (IN) | payer OTHER | END 2018-03-26 08:00 | disposition still patient (30) | LOC: PAVC 15:42 | PROVIDERS: ADMIT Internal Medicine ==

== ENCOUNTER 2018-03-11 05:48 | Outpatient (CLI) | payer OTHER ==
[2018-03-11 07:25] LABS: PLATELET COUNT 191 K/uL (142-355)
[2018-03-11 07:52] LABS: POTASSIUM 4.4 mmol/L (3.6-5.2)
== END 2018-03-11 23:43 | disposition home or self-care (01) ==
LOC: LAB 05:48
PROVIDERS: Internal Medicine
DX: Z13.89 Encounter for screening for other disorder (principal); Z79.899 Other long term (current) drug therapy
CPT/HCPCS: 80053; 80061; 85027

== ENCOUNTER 2018-03-26 09:00 | Inpatient (IN) | payer OTHER | END 2018-04-26 11:13 | disposition still patient (30) | LOC: PAVC 09:00 | PROVIDERS: ADMIT Internal Medicine ==

== ENCOUNTER 2018-04-26 11:50 | Inpatient (IN) | payer OTHER | END 2018-05-26 15:06 | disposition still patient (30) | LOC: PAVC 11:50 | PROVIDERS: ADMIT Internal Medicine ==

== ENCOUNTER 2018-05-26 15:59 | Inpatient (IN) | payer OTHER | END 2018-06-26 10:41 | disposition still patient (30) | LOC: PAVC 15:59 | PROVIDERS: ADMIT Internal Medicine ==

== ENCOUNTER 2018-06-17 13:11 | Outpatient (CLI) | payer OTHER | END 2018-06-17 21:27 | disposition home or self-care (01) | LOC: LAB 13:11 | DX: S31.000A Unspecified open wound of lower back and pelvis without penetration into retroperitoneum, initial encounter (principal) | CPT/HCPCS: 87070; 87077; 87186; 87205 ==

== ENCOUNTER 2018-06-26 11:44 | Inpatient (IN) | payer OTHER | END 2018-07-26 07:23 | disposition still patient (30) | LOC: PAVC 11:44 | PROVIDERS: ADMIT Internal Medicine ==

== ENCOUNTER 2018-07-26 08:01 | Inpatient (IN) | payer OTHER | END 2018-08-26 09:39 | disposition still patient (30) | LOC: PAVC 08:01 | PROVIDERS: ADMIT Internal Medicine ==

== ENCOUNTER 2018-08-26 10:08 | Inpatient (IN) | payer OTHER | END 2018-09-26 09:40 | disposition still patient (30) | LOC: PAVC 10:08 | PROVIDERS: ADMIT Internal Medicine ==

== ENCOUNTER 2018-09-11 06:20 | Outpatient (CLI) | payer OTHER | END 2018-09-11 21:32 | disposition home or self-care (01) | LOC: LAB 06:20 | DX: R19.7 Diarrhea, unspecified (principal) | CPT/HCPCS: 83630; 87015; 87045; 87324; 87328; 87329; 87449; 87899 ==

== ENCOUNTER 2018-09-26 10:34 | Inpatient (IN) | payer OTHER | END 2018-10-24 13:52 | disposition still patient (30) | LOC: PAVC 10:34 | PROVIDERS: ADMIT Internal Medicine ==

== ENCOUNTER 2018-10-24 14:33 | Inpatient (IN) | payer OTHER | END 2018-11-24 12:33 | disposition still patient (30) | LOC: PAVC 14:33 | PROVIDERS: ADMIT Internal Medicine ==

== ENCOUNTER 2018-11-24 13:01 | Inpatient (IN) | payer OTHER | END 2018-12-24 13:45 | disposition still patient (30) | LOC: PAVC 13:01 | PROVIDERS: ADMIT Internal Medicine ==

== ENCOUNTER 2018-12-24 14:22 | Inpatient (IN) | payer OTHER | END 2019-01-24 09:41 | disposition still patient (30) | LOC: PAVC 14:22 | PROVIDERS: ADMIT Internal Medicine | DX: Z51.89 Encounter for other specified aftercare (principal) ==

== ENCOUNTER 2019-01-24 10:15 | Inpatient (IN) | payer OTHER | END 2019-02-23 12:21 | disposition still patient (30) | LOC: PAVC 10:15 | PROVIDERS: ADMIT Internal Medicine ==

== ENCOUNTER 2019-02-23 12:45 | Inpatient (IN) | payer OTHER | END 2019-03-26 12:33 | disposition still patient (30) | LOC: PAVC 12:45 | PROVIDERS: ADMIT Internal Medicine ==

== ENCOUNTER 2019-03-09 03:24 | Outpatient (CLI) | payer OTHER ==
[2019-03-09 03:40] LABS: PLATELET COUNT 153 K/uL (142-355)
[2019-03-09 04:00] LABS: POTASSIUM 4.1 mmol/L (3.6-5.2)
== END 2019-03-09 22:43 | disposition home or self-care (01) ==
LOC: LAB 03:24
PROVIDERS: Internal Medicine
DX: E78.49 Other hyperlipidemia (principal); R03.0 Elevated blood-pressure reading, without diagnosis of hypertension; R79.89 Other specified abnormal findings of blood chemistry
CPT/HCPCS: 36415; 80053; 80061; 85027

== ENCOUNTER 2019-03-26 14:27 | Inpatient (IN) | payer OTHER | END 2019-04-26 17:18 | disposition still patient (30) | LOC: PAVC 14:27 | PROVIDERS: ADMIT Internal Medicine ==

== ENCOUNTER 2019-04-09 01:53 | Outpatient (CLI) | payer OTHER | END 2019-04-09 02:03 | LOC: LAB 01:53 | DX: R74.0 Nonspecific elevation of levels of transaminase and lactic acid dehydrogenase [LDH] (principal) | CPT/HCPCS: 36415; 80076 ==

== ENCOUNTER 2019-04-13 10:42 | Outpatient (CLI) | payer OTHER | END 2019-04-13 16:00 | disposition home or self-care (01) | LOC: LAB 10:42 | DX: T81.30XA Disruption of wound, unspecified, initial encounter (principal); R50.9 Fever, unspecified | CPT/HCPCS: 81000; 87070; 87077; 87086; 87088; 87186; 87205 ==

== ENCOUNTER 2019-04-26 17:52 | Inpatient (IN) | payer OTHER | END 2019-05-26 12:59 | disposition still patient (30) | LOC: PAVC 17:52 | PROVIDERS: ADMIT Internal Medicine ==

== ENCOUNTER 2019-04-28 13:01 | Outpatient (CLI) | payer OTHER | END 2019-04-28 22:58 | disposition home or self-care (01) | LOC: LAB 13:01 | DX: N39.0 Urinary tract infection, site not specified (principal) | CPT/HCPCS: 81000; 87086; 87088 ==

== ENCOUNTER 2019-04-30 05:45 | Outpatient (CLI) | payer OTHER | END 2019-04-30 23:17 | LOC: LAB 05:45 | DX: R82.90 Unspecified abnormal findings in urine (principal) | CPT/HCPCS: 81000; 87077; 87086; 87088; 87186 ==

== ENCOUNTER 2019-05-19 05:25 | Outpatient (CLI) | payer OTHER | END 2019-05-19 19:59 | disposition home or self-care (01) | LOC: LAB 05:25 | DX: R82.998 Other abnormal findings in urine (principal) | CPT/HCPCS: 81000 ==

== ENCOUNTER 2019-05-26 13:41 | Inpatient (IN) | payer OTHER | END 2019-06-26 14:17 | disposition still patient (30) | LOC: PAVC 13:41 | PROVIDERS: ADMIT Internal Medicine ==

== ENCOUNTER 2019-06-15 15:46 | Outpatient (CLI) | payer OTHER | END 2019-06-15 20:02 | disposition home or self-care (01) | LOC: RAD 15:46 | DX: R06.2 Wheezing (principal) ==

== ENCOUNTER 2019-06-22 08:19 | Outpatient (CLI) | payer OTHER | END 2019-06-22 20:20 | disposition home or self-care (01) | LOC: LAB 08:19 | DX: R82.998 Other abnormal findings in urine (principal); Z93.1 Gastrostomy status | CPT/HCPCS: 81000; 87070; 87077; 87086; 87088; 87186; 87205 ==

== ENCOUNTER 2019-06-26 15:03 | Inpatient (IN) | payer OTHER | END 2019-07-26 08:00 | disposition still patient (30) | LOC: PAVC 15:03 | PROVIDERS: ADMIT Internal Medicine ==

== ENCOUNTER 2019-07-26 11:00 | Inpatient (IN) | payer OTHER ==
[2019-08-26] MEDS ORDERED: CLON0.1D TD (14:41)
[2019-08-26] MEDS ORDERED: MIRALAX3350 N1 PEG (14:47)
[2019-08-26] MEDS ORDERED: MULTIVITAMI1 PEG (14:48)
[2019-08-26] MEDS ORDERED: NAMZARIC 28-101 CAP PO (14:49)
[2019-08-26] MEDS ORDERED: SEROQUEL100 MG PEG (14:50)
[2019-08-26] MEDS ORDERED: OMEP20CA PEG (14:50)
[2019-08-26] MEDS ORDERED: VITAMIN C 500 M1 TAB PEG (14:51)
[2019-08-26] MEDS ORDERED: PROTEINE1 PEG (14:52)
[2019-08-26] MEDS ORDERED: HYDR5TAB9 PEG (14:53)
[2019-08-26] MEDS ORDERED: MUCUS+CHES200 MG/10 PEG (14:55)
[2019-08-26] MEDS ORDERED: DIPH2.5T76 PEG (14:55)
== END 2019-08-26 09:32 | disposition still patient (30) ==
LOC: PAVC 11:00
PROVIDERS: ADMIT Internal Medicine

== ENCOUNTER 2019-08-04 08:31 | Outpatient (CLI) | payer OTHER ==
[2019-08-04 12:20] LABS: PLATELET COUNT 192 K/uL (142-355)
[2019-08-04 12:23] LABS: POTASSIUM 4.2 mmol/L (3.6-5.2)
== END 2019-08-04 20:48 | disposition home or self-care (01) ==
LOC: LAB 08:31 → RAD 08:31
PROVIDERS: Internal Medicine
DX: R11.10 Vomiting, unspecified (principal); R82.998 Other abnormal findings in urine
CPT/HCPCS: 80053; 81000; 85027; 87077; 87086; 87088; 87186

== ENCOUNTER 2019-08-22 15:15 | Outpatient (CLI) | payer OTHER | END 2019-08-22 20:49 | disposition home or self-care (01) | LOC: LABW 15:15 → RAD 15:15 | DX: R91.8 Other nonspecific abnormal finding of lung field (principal); N39.0 Urinary tract infection, site not specified | CPT/HCPCS: 81000 ==

== ENCOUNTER 2019-08-25 22:36 | Outpatient (CLI) | payer OTHER ==
[2019-08-25 23:12] LABS: PLATELET COUNT 110 K/uL (142-355)
[2019-08-25 23:20] LABS: POTASSIUM 3.9 mmol/L (3.6-5.2)
[2019-08-26] MEDS ORDERED: CLON0.1D TD (14:41)
[2019-08-26] MEDS ORDERED: MIRALAX3350 N1 PEG (14:47)
[2019-08-26] MEDS ORDERED: MULTIVITAMI1 PEG (14:48)
[2019-08-26] MEDS ORDERED: NAMZARIC 28-101 CAP PO (14:49)
[2019-08-26] MEDS ORDERED: OMEP20CA PEG (14:50)
[2019-08-26] MEDS ORDERED: SEROQUEL100 MG PEG (14:50)
[2019-08-26] MEDS ORDERED: VITAMIN C 500 M1 TAB PEG (14:51)
[2019-08-26] MEDS ORDERED: PROTEINE1 PEG (14:52)
[2019-08-26] MEDS ORDERED: HYDR5TAB9 PEG (14:53)
[2019-08-26] MEDS ORDERED: DIPH2.5T76 PEG (14:55)
[2019-08-26] MEDS ORDERED: MUCUS+CHES200 MG/10 PEG (14:55)
== END 2019-08-25 23:43 | disposition home or self-care (01) ==
LOC: LAB 22:36
PROVIDERS: Internal Medicine
DX: R53.83 Other fatigue (principal)
CPT/HCPCS: 80053; 85027

== ENCOUNTER 2019-08-26 07:03 | Inpatient (IN) | payer OTHER ==
[~2019-08-26] VITALS: Ht 177.8 cm; Wt 72.6 kg
[2019-08-26 10:15] VITALS: BP 138/84; TEMP 98; Ht 177.8 cm; Wt 72.6 kg
[2019-08-26 11:59] VITALS: BP 141/90; TEMP 99.3
[2019-08-26] MEDS ORDERED: CLON0.1D TD (14:41)
[2019-08-26] MEDS ORDERED: MIRALAX3350 N1 PEG (14:47)
[2019-08-26] MEDS ORDERED: MULTIVITAMI1 PEG (14:48)
[2019-08-26] MEDS ORDERED: NAMZARIC 28-101 CAP PO (14:49)
[2019-08-26] MEDS ORDERED: SEROQUEL100 MG PEG (14:50)
[2019-08-26] MEDS ORDERED: OMEP20CA PEG (14:50)
[2019-08-26] MEDS ORDERED: VITAMIN C 500 M1 TAB PEG (14:51)
[2019-08-26] MEDS ORDERED: PROTEINE1 PEG (14:52)
[2019-08-26] MEDS ORDERED: HYDR5TAB9 PEG (14:53)
[2019-08-26] MEDS ORDERED: MUCUS+CHES200 MG/10 PEG (14:55)
[2019-08-26] MEDS ORDERED: DIPH2.5T76 PEG (14:55)
[2019-08-26 16:00] VITALS: BP 130/92; TEMP 98.5
[2019-08-26 20:00] VITALS: BP 116/66; TEMP 98.4
[2019-08-27] VITALS: BP 128/88; TEMP 98.7
[2019-08-27 04:00] VITALS: BP 142/89; TEMP 99.1
[2019-08-27 05:45] LABS: POTASSIUM 3.3 mmol/L (3.6-5.2)
[2019-08-27 08:00] VITALS: BP 128/82; TEMP 99.3
[2019-08-27 12:00] VITALS: BP 108/71; TEMP 99.5
[2019-08-27 16:00] VITALS: BP 139/82; TEMP 99
[2019-08-27 20:00] VITALS: BP 151/82; TEMP 99.1
[2019-08-28] VITALS (7 sets, daily range): BP systolic 117–164; BP diastolic 68–89; TEMP 98–99.4
[2019-08-28 05:21] LABS: PLATELET COUNT 87 K/uL (142-355)
[2019-08-28 05:34] LABS: POTASSIUM 4.2 mmol/L (3.6-5.2)
[2019-08-29] VITALS (7 sets, daily range): BP systolic 113–148; BP diastolic 78–91; TEMP 98.3–99.3
[2019-08-29 05:29] LABS: POTASSIUM 4.7 mmol/L (3.6-5.2)
[2019-08-30 03:49] VITALS: BP 139/87; TEMP 99.2
[2019-08-30 04:28] LABS: POTASSIUM 4.1 mmol/L (3.6-5.2)
[2019-08-30 20:00] VITALS: BP 135/90; TEMP 98
[2019-08-31] VITALS: BP 152/97; TEMP 99.3
[2019-08-31 03:57] VITALS: BP 162/98; TEMP 98.8
[2019-08-31 08:00] VITALS: BP 140/68; TEMP 99.1
[2019-08-31 12:00] VITALS: BP 153/82; TEMP 98.9
[2019-08-31 20:00] VITALS: BP 140/75; TEMP 99.4
[2019-09-01] VITALS: BP 146/85; TEMP 98.9
[2019-09-01 04:00] VITALS: BP 176/86; TEMP 98.3
[2019-09-01 06:41] LABS: POTASSIUM 3.9 mmol/L (3.6-5.2)
[2019-09-01 09:07] LABS: PLATELET COUNT 79 K/uL (142-355)
== END 2019-09-01 14:55 | DRG 682 ==
LOC: MED/SURG 07:03
PROVIDERS: ADMIT Internal Medicine
DX: N17.8 Other acute kidney failure (principal); L89.153 Pressure ulcer of sacral region, stage 3; E87.0 Hyperosmolality and hypernatremia; E87.8 Other disorders of electrolyte and fluid balance, not elsewhere classified; E87.6 Hypokalemia; E11.9 Type 2 diabetes mellitus without complications; G30.8 Other Alzheimer's disease; F02.80 Dementia in other diseases classified elsewhere, unspecified severity, without behavioral disturbance, psychotic disturbance, mood disturbance, and anxiety; B96.4 Proteus (mirabilis) (morganii) as the cause of diseases classified elsewhere; I10 Essential (primary) hypertension
CPT/HCPCS: 36415; 80048; 83036; 83735; 85027; 87070; 87077; 87186; 87205; J1335; J2060; J3490

== ENCOUNTER 2019-08-26 10:08 | Inpatient (IN) | payer OTHER ==
[2019-08-26] MEDS ORDERED: CLON0.1D TD (14:41)
[2019-08-26] MEDS ORDERED: MIRALAX3350 N1 PEG (14:47)
[2019-08-26] MEDS ORDERED: MULTIVITAMI1 PEG (14:48)
[2019-08-26] MEDS ORDERED: NAMZARIC 28-101 CAP PO (14:49)
[2019-08-26] MEDS ORDERED: SEROQUEL100 MG PEG (14:50)
[2019-08-26] MEDS ORDERED: OMEP20CA PEG (14:50)
[2019-08-26] MEDS ORDERED: VITAMIN C 500 M1 TAB PEG (14:51)
[2019-08-26] MEDS ORDERED: PROTEINE1 PEG (14:52)
[2019-08-26] MEDS ORDERED: HYDR5TAB9 PEG (14:53)
[2019-08-26] MEDS ORDERED: DIPH2.5T76 PEG (14:55)
[2019-08-26] MEDS ORDERED: MUCUS+CHES200 MG/10 PEG (14:55)
== END 2019-09-26 10:47 | disposition still patient (30) ==
LOC: PAVC 10:08
PROVIDERS: ADMIT Internal Medicine
DX: B96.4 Proteus (mirabilis) (morganii) as the cause of diseases classified elsewhere (principal); L89.154 Pressure ulcer of sacral region, stage 4; G30.1 Alzheimer's disease with late onset; F02.81 Dementia in other diseases classified elsewhere, unspecified severity, with behavioral disturbance; D64.9 Anemia, unspecified; N28.9 Disorder of kidney and ureter, unspecified; E78.5 Hyperlipidemia, unspecified; R13.10 Dysphagia, unspecified; E11.9 Type 2 diabetes mellitus without complications; I10 Essential (primary) hypertension; J30.2 Other seasonal allergic rhinitis

== ENCOUNTER 2019-09-10 22:32 | Outpatient (CLI) | payer OTHER ==
[~2019-09-10 22:32] MED LIST changes: +CLON0.1D TD; +DIPH2.5T76 PEG; +HYDR5TAB9 PEG; +MIRALAX3350 N1 PEG; +MUCUS+CHES200 MG/10 PEG; +MULTIVITAMI1 PEG; +NAMZARIC 28-101 CAP PO; +OMEP20CA PEG; +PROTEINE1 PEG; +SEROQUEL100 MG PEG; +VITAMIN C 500 M1 TAB PEG
[2019-09-10 22:51] LABS: PLATELET COUNT 199 K/uL (142-355)
[2019-09-10 22:58] LABS: POTASSIUM 4.6 mmol/L (3.6-5.2)
== END 2019-09-10 23:07 | disposition home or self-care (01) ==
LOC: LAB 22:32
PROVIDERS: Internal Medicine
DX: N39.0 Urinary tract infection, site not specified (principal)
CPT/HCPCS: 80053; 85027

== ENCOUNTER 2019-09-26 11:40 | Inpatient (IN) | payer OTHER | END 2019-10-25 14:12 | disposition still patient (30) | LOC: PAVC 11:40 | PROVIDERS: ADMIT Internal Medicine ==

== ENCOUNTER 2019-10-25 14:49 | Inpatient (IN) | payer OTHER | END 2019-11-25 11:45 | disposition still patient (30) | LOC: PAVC 14:49 | PROVIDERS: ADMIT Internal Medicine ==

== ENCOUNTER 2019-12-16 21:20 | Outpatient (CLI) | payer OTHER | END 2019-12-16 22:59 | disposition home or self-care (01) | LOC: LAB 21:20 | DX: N39.0 Urinary tract infection, site not specified (principal); B96.4 Proteus (mirabilis) (morganii) as the cause of diseases classified elsewhere | CPT/HCPCS: 81000; 87086; 87088 ==

== ENCOUNTER 2019-12-25 12:04 | Inpatient (IN) | payer OTHER | END 2020-01-25 11:23 | disposition still patient (30) | LOC: PAVC 12:04 | PROVIDERS: ADMIT Internal Medicine ==

== ENCOUNTER 2020-01-25 11:55 | Inpatient (IN) | payer OTHER | END 2020-02-24 11:57 | disposition still patient (30) | LOC: PAVC 11:55 | PROVIDERS: ADMIT Internal Medicine | CPT/HCPCS: 87635; U0002 ==

== ENCOUNTER 2020-02-24 10:08 | Outpatient (CLI) | payer OTHER ==
[2020-02-24 10:53] LABS: PLATELET COUNT 159 K/uL (142-355)
[2020-02-24 11:02] LABS: POTASSIUM 4.4 mmol/L (3.6-5.2)
== END 2020-02-24 22:04 | disposition home or self-care (01) ==
LOC: LAB 10:08
PROVIDERS: Internal Medicine
DX: F02.81 Dementia in other diseases classified elsewhere, unspecified severity, with behavioral disturbance (principal); I10 Essential (primary) hypertension; E78.49 Other hyperlipidemia
CPT/HCPCS: 80053; 80061; 85027

== ENCOUNTER 2020-02-24 12:16 | Inpatient (IN) | payer OTHER | END 2020-03-26 10:15 | disposition still patient (30) | LOC: PAVC 12:16 | PROVIDERS: ADMIT Internal Medicine ==

== ENCOUNTER 2020-03-26 10:38 | Inpatient (IN) | payer OTHER | END 2020-04-26 14:04 | disposition still patient (30) | LOC: PAVC 10:38 | PROVIDERS: ADMIT Internal Medicine ==

== ENCOUNTER 2020-04-26 14:54 | Inpatient (IN) | payer OTHER | END 2020-05-26 14:10 | disposition still patient (30) | LOC: PAVC 14:54 | PROVIDERS: ADMIT Internal Medicine ==

== ENCOUNTER 2020-05-26 15:13 | Inpatient (IN) | payer OTHER | END 2020-06-26 08:00 | disposition still patient (30) | LOC: PAVC 15:13 | PROVIDERS: ADMIT Internal Medicine ==

== ENCOUNTER 2020-06-26 09:00 | Inpatient (IN) | payer OTHER | END 2020-07-26 12:26 | disposition still patient (30) | LOC: PAVC 09:00 | PROVIDERS: ADMIT Internal Medicine; ATTEND Internal Medicine ==

== ENCOUNTER 2020-07-26 12:55 | Inpatient (IN) | payer OTHER | END 2020-08-26 09:48 | disposition still patient (30) | LOC: PAVC 12:55 | PROVIDERS: ADMIT Internal Medicine; ATTEND Internal Medicine ==

== ENCOUNTER 2020-08-26 10:13 | Inpatient (IN) | payer OTHER | END 2020-09-26 15:31 | disposition still patient (30) | LOC: PAVC 10:13 | PROVIDERS: ADMIT Internal Medicine; ATTEND Internal Medicine ==

== ENCOUNTER 2020-08-29 10:34 | Outpatient (CLI) | payer OTHER ==
[2020-08-29 10:57] LABS: PLATELET COUNT 176 K/uL (142-355)
[2020-08-29 11:06] LABS: POTASSIUM 4.2 mmol/L (3.6-5.2)
== END 2020-08-29 21:08 | disposition home or self-care (01) ==
LOC: LAB 10:34
PROVIDERS: ATTEND Internal Medicine
DX: I10 Essential (primary) hypertension (principal); E78.49 Other hyperlipidemia; E11.9 Type 2 diabetes mellitus without complications
CPT/HCPCS: 80053; 80061; 85027

== ENCOUNTER 2020-09-26 15:37 | Inpatient (IN) | payer OTHER | END 2020-10-24 11:17 | disposition still patient (30) | LOC: PAVC 15:37 | PROVIDERS: ADMIT Internal Medicine; ATTEND Internal Medicine ==

== ENCOUNTER 2020-10-27 09:17 | Inpatient (IN) | payer OTHER ==
[~2020-10-27] VITALS: Ht 165.1 cm; Wt 60.3 kg
[2020-10-27 09:20] VITALS: BP 145/104; TEMP 100.9
[2020-10-27 09:50] LABS: PLATELET COUNT 159 K/uL (142-355)
[2020-10-27 10:08] VITALS: BP 149/101
[2020-10-27 10:28] LABS: PARTIAL THROMBOPLASTIN TIME 31.6 SECONDS (24.5-33.6)
--- NOTE | 2020-10-27 12:40 | NUR ---
PATIENT ARRIVED TO THE FLOOR VIA STRETCHER. TRANSFER TO BED X4 ASSIST. YUNG INTACT DRAINING. NRB IN PLACE. NAD NOTED.
[2020-10-27 12:43] VITALS: BP 85/55; TEMP 98.3; Ht 165.1 cm; Wt 60.3 kg
[2020-10-27] MEDS ORDERED: CALCIUM 600 + D PEG (14:28)
[2020-10-27] MEDS ORDERED: CULTURELL3 PEG (14:30)
[2020-10-27] MEDS ORDERED: BENEPROTEIN6 GM PEG (14:32)
[2020-10-27] MEDS ORDERED: GLUCERNA CAL PEG (14:34)
[2020-10-27] MEDS ORDERED: CLON0.1T16 PEG (14:37)
[2020-10-27] MEDS ORDERED: NOVOLOG FL100 UNIT/M SC (14:41)
--- NOTE | 2020-10-27 16:37 | NUR ---
PT REPOSITIONED FOR WOUND CARE, NOTED LARGE, BROWN STOOL, BRIGHT RED BLOOD AROUND RECTUM, REDNESS TO SKIN BETWEEN BUTTOCKS, PERICARE PROVIDED. SACRAL WOUND CLEANED WITH NS, SANTYL APPLIED TO ESCHAR ONLY, FLUFF INSERTED, WOUND COVERED WITH DUODERM. WOUND BED COVERED WITH ESCHAR, SKIN AROUND WOUND EDGES MACERATED AND PALE. PT ROXANNA WOUND CARE FAIR. SKIN PREP APPLIED TO BONY PROMINENCES ON HIPS, KNEES ANKLES AND FEET. BUNNY BOOTS APPLIED, FEET ELEVATED. CATH SECURE APPLIED TO RT THIGH AND YUNG SECURED. PEG PLACEMENT VERIFIED BY AUSCULTATION, 10CC GREEN RESIDUAL NOTED. PEG FLUSHED WITH 60CC H20, ONE CAN GLUCERNA 1.5 ADMIN WITH 2 SCOOPS OF BENEPROTEIN AND FOLLOWED WITH 60CC H20. HOB ELEVATED. SPOUSE AT BEDSIDE. CALL LIGHT IN EASY REACH. WILL CONTINUE TO MONITOR.
--- NOTE | 2020-10-27 17:13 | NUR ---
BP 73/40- NOTED CLONIDINE PATCH TO L SHOULDER- REMOVED CLONIDINE PATCH, NOTIFIED DR. MILLER- V/O GIVEN TO DC PATCH.
[2020-10-27 19:54] VITALS: BP 86/40; TEMP 100.7
--- NOTE | 2020-10-27 22:30 | NUR ---
TYLENOL SUPPOSITORY GIVEN FOR A TEMP OF 100.6 AXILLARY. UPON ADMINISTRATION OF SUPPOSITORY. PT HAD A LARGE, FORMED BOWEL MOVEMENT WHICH CONTAINED THE SUPPOSITORY ADMINISTERED.
--- NOTE | 2020-10-27 23:15 | NUR ---
EXTENISIVE MOUTH CARE PROVIDED AT THIS TIME. THICK,COPIOUS, YELLOW-TINGED SPUTUM SUCTIONED FROM ORAL CAVITY. PERICARE PROVIDED. LARGE, FORMED BOWEL MOVEMENT AT THIS TIME. PT. CLEANED, BATH GIVEN AND NEW LINENS PROVIDED AT THIS TIME. AT BEDSIDE. PROVIDED LINENS FOR PT'S SPOUSE AND ASKED IF THERE WAS ANYTHING ELSE WE COULD PROVIDE THEM AT THIS TIME. NO ACUTE DISTRESS NOTED. PT. RESTING WITH EYES CLOSED AND NO LABORED BREATHING NOTED AT THIS TIME.
[2020-10-27 23:33] VITALS: BP 85/38; TEMP 100.6
--- NOTE | 2020-10-28 00:30 | NUR ---
REASSESSED TEMP AND TEMP WAS 100.4 AXILLARY. NOTIFED ER PHYSICIAN OF FEVER AND HE PRESCRIBED IBUPROFEN 800 MG PO, NOTED AND CARRIED OUT.
--- NOTE | 2020-10-28 01:29 | NUR ---
G TUBE ASSESSED AND NO RESIDUAL NOTED. FLUSHED WITH 60 ML OF WATER, THEN CRUSHED IBUPROFEN 800 MG GIVEN VIA G TUBE, AND THEN FLUSHED WITH 60 ML OF WATER AFTERWARDS. REMAINS AT BEDSIDE. PT CONTINUES RECEIVING 02 VIA NONREBREATHER MASK AT 15 LPM. NAD NOTED.
[2020-10-28 04:29] VITALS: BP 78/48; TEMP 98.8
--- NOTE | 2020-10-28 05:00 | NUR ---
LAB AT BEDSIDE FOR BLOOD DRAW FOR AM LABS. PATIENT TOLERATED WELL. REMAINS AT PATIENT'S BEDSIDE. NAD NOTED WITH PATIENT AT THIS TIME.
[2020-10-28 05:50] LABS: PLATELET COUNT 91 K/uL (142-355)
[2020-10-28 05:53] LABS: POTASSIUM 4.9 mmol/L (3.6-5.2)
--- NOTE | 2020-10-28 06:08 | NUR ---
Patient was admitted from the [facility] with aspiration pneumonia, had an episode of emesis yesterday and thought it was aspiration; Aspiration Pneumonia with Sepsis, Hypoxia, NKFA, tachycardia, respiratoy, 80YOM, and is 5'5" at 139 lbs. and per MD notes at 129 lbs. and IBW = 136 +/-10% (122 to 150 lbs.) and kcal needs for IBW = 1500 x 25, x 30 = 1900, x 35 = 2200, x 40 = 2500, protein needs x 1.3 to 1.5 = 80 to 93 grams per day and fluids x 25 = 1500, x 30 = 1900, x 35 = 2200, x 40 = 2500 ml/cc per day. BMI at 22.43 and is wnl's and is 102% of IBW using 139 weight and using 129 weight = 20.8 and is wnls' and is 95% of IBW. Diagnosis of Dyspnea, UTI, wound care, fever, 100.4, and give ibuprofen with 30 ml flushes before and after 800 mg crushed, stewart cathetor, is on a g-tube, o2, pneumonia, AD with Dementia, Hyperlipidemia, Anxiety, as bedside, anxiety, weakness, decubitus ulcer of sacral region that is unstagable, ARF, N/V, volume depletion, electrolyte imbalance, HTN, Dysphagia, Anemia, UTI, Sepsis, SSI coverage, metabolic acidosis, increased anion gap, S/P percutaneous endoscopic gastrostomy (PEG) tube placement, NKFA, and is receiving proteinex 30 ml BID and Beneprotein 6 gm 1 scoop TID, Vitamin C and MVI to help with wound healing, also recieves Vitamin D/Calcium, insulin, catapres, and labs reveal lactic acid 6.2, WBC, MPVplatelet count 16.6, BUN 75, Creat 3.1gl 203, ca 11.1alk P04 231, troponin, B Jessenia. Peptide 405, all elevated and the labs that are depressed are: C02 20, ast, and alb 3.2 all depressed and patient is on Glucerna 1.5 tid =720 ml/cc and 1080 kcal/day, protein = 90 grams plus other protein so is adequate, fluids = 547 plus flushes and with MVI meets 100% RDI's, ARTICULATION OFFICER's and need to increase to 5 cans q day if tolertaed to = 1200/1800 kcal, protein = 100 grams, fluids = 912 and needs 988 extra fluids per day to be adequate and d/x dx. needs more if tolerated d/t diagnosis as stated. ARTICULATION OFFICER/RDI's meet with formula and also receives a MVI to help with wound healing. RD Recommendations: 1-Monitor labs 2-PT to work with patient 3-OT to work with patient 4-May want STto evaluate 6-Increase fluids as tolerated 7-Add ZNSO4 220 mg per day and d/c in 14 days 8-Make sure hydrated 9-Goal 5 cans a day if tolerated 10-Needs 988 cc/ml of extra fluids plus extra if tolerated
--- NOTE | 2020-10-28 06:45 | NUR ---
REC'D REPORT THIS AM FROM EDUARDO MCKAY LPN AND DANIELLA CLARK LPN.
--- NOTE | 2020-10-28 07:30 | NUR ---
PT AT BEDSIDE. PT RESTING QUIETLY IN HIGH FOWLERS WITH EYES CLOSED. NON REBREATHER ON AT 15LPM. IVF INFUSING WITHOUT DIFFICULTY AT 75ML/HR. NO C/O REPORTED AT THIS TIME.
[2020-10-28 08:00] VITALS: BP 81/51; TEMP 98.9
--- NOTE | 2020-10-28 09:30 | NUR ---
IN TO GIVE PT AM MEDS VIA PEG TUBE. AM ASSESSMENT COMPLETED. NO RESIDULE NOTED IN PEG TUBE. FLUSHED WITH 60 ML WARM WATER. MEDS GIVEN FOLLOWED BY ONE CAN OF GLUCERNA 1.5 THE FLUSHED AGAIN WITH 60 ML WATER. PT TOLERATED MEDS AND FEEDING WELL. IVF INFUSITN WITHOUT DIFFCULTY. 22 G IV NOTED TO LFA LIGHTLY WRAPPED WITH COBAND. PT BLE FLOATED WITH HEEL PROTECTORS IN PLACE. PT'S REMAINS AT BEDSIDE. 18FR YUNG TO BEDSIDE DRAINING CLOUDY YELLOW URINE. MINIMAL AMOUNT NOTED IN YUNG BAG AT THIS TIME.
--- NOTE | 2020-10-28 10:00 | NUR ---
DR. JARVIS AT PT'S BEDSIDE AT THIS TIME.
--- NOTE | 2020-10-28 12:10 | NUR ---
IV FLUIDS CHANGED FROM NS TO D5 WITH 2 AMPS OF BICARB AT 70ML/HR AT THIS TIME.
--- NOTE | 2020-10-28 14:25 | NUR ---
ASSISTED DINH PCT WITH CLEANING AND TURNING PT AT THIS TIME. PT NOTED TO GRUNT WHEN TURNING. PT NOTED TO HAVE SMALL BOWEL MOVEMENT AT THIS TIME. PT CLEANED AND TURNED AND REPOSITIONED TO LEFT SIDE. PILLOW PLACED BETWEEN PT'S KNEES AND HEELS FLOATED.
[2020-10-28 16:00] VITALS: BP 101/50; TEMP 98.2
--- NOTE | 2020-10-28 17:45 | NUR ---
IN TO ASSIST PCT WITH CHANGING AND TURNING PT. PT NOTED TO HAVE FORMED BOWEL MOVEMENT. PT CLEANED AND TURNED TO RIGHT SIDE. ASSESSED PT'S PEG TUBE FOR ANY RESIDULE. 5ML RESIDULE NOTED AT THIS TIME. PT PEG TUBE FLUSHED WITH 90 ML WATER. ONE CAN GLUCERNA 1.5 GIVEN FLUSHED AGAIN WITH 60 ML WATER. PT TOLERATED FEEDING WELL. HOB ELEVATED AT 35 DEGREES. IVF INFUSING WITHOUT DIFFICULTY, YUNG TO BEDSIDE DRAINING TEA COLOR URINE.
--- NOTE | 2020-10-28 18:07 | NUR ---
PT CON'T TO BE ON NON-REBREATHER AT 15LPM.
[2020-10-28 20:00] VITALS: BP 116/55; TEMP 98.7
[2020-10-29] VITALS: BP 107/48; TEMP 99.4
[2020-10-29 04:00] VITALS: BP 126/55; TEMP 99.5
[2020-10-29 08:00] VITALS: BP 87/53; TEMP 99.5
[2020-10-29 08:29] LABS: PLATELET COUNT 83 K/uL (142-355)
[2020-10-29 08:46] LABS: POTASSIUM 3.5 mmol/L (3.6-5.2)
[2020-10-29 12:00] VITALS: BP 122/73; TEMP 98.9
--- NOTE | 2020-10-29 16:45 | NUR ---
Patient is lying in bed with eyes opened. Being turned and repositioned frquently, with heels floated. Heel protectors are also in in place. Patient is on non-rebreather mask, and O2 sat is at normal range. Feeding and med administered through g-tube, with flushes as ordered. Hob is keeped at 45% or highter d/t aspiration precaution. Dressing change was done to decubitus on coccyx, and barrier cream appied to irritated area on anus. Patient has stewart cath in place, patent and draining to bs drainage bag. Patient had a temp of 100.2 axillary. Tylenol, 650 mg, suspension was administered via g-tube. Will continue to monitor temp. No acute distress noted. Call light is within reach and bed alarm is on. Patient's is at bedside also. Will continue to monitor.
--- NOTE | 2020-10-29 18:17 | NUR ---
NOTIFIED DR. MILLER REGARDING PT TEMP BEING 101.8 AFTER ADMINISTERING TYLENOL AT 1350, DR. MILLER ORDERS A ONE TIME DOSE OF IBUPROFEN 800MG PO AND COOL COMPRESSES NEEDED, NO FURTHER ORDERS AT THIS TIME
--- NOTE | 2020-10-29 18:24 | NUR ---
Patient given sponge bath. Patient has audible rattling in upper airway. Patient was suctioned in oral cavity with small amount of secretions collected. Scopolamine patch applied behind right ear for secretions. Axillary temp recheck and found to be 100.8. Dr Chavez called and new order for one time dose of ibuprofen, 800 mg, per peg tube, x 1 dose was crushed and given via peg tube. Hob of bed is in high folers, No acute distress noted. Call light within reach, bed alarm on, and is at bs. Will continuet to monitor.
[2020-10-29 20:00] VITALS: BP 141/69; TEMP 99.7
--- NOTE | 2020-10-29 22:33 | NUR ---
10/29/20 AT 2130 ATTEMPTED TO GIVE PATIENT THIRD PEG FEEDING OF DAY, WHEN CHECKING FOR RESIDUAL PATIENT HAD 40MLS OF RESIDUAL. FEEDING HELD AT THIS TIME. PATIENTS NIGHT TIME SCHEDULED MEDS AND H20 FLUSH GIVEN WITHOUT DIFFICULTY AND PATIENT TOLERATED WELL. IS AT BEDSIDE. NO ACUTE DISTRESS NOTED AT THIS TIME. CALL LIGHT WITHIN REACH. WILL CONTINUE TO MONITOR.
[2020-10-30] VITALS: BP 102/51; TEMP 100
[2020-10-30 04:00] VITALS: BP 97/42; TEMP 99.2
[2020-10-30 05:49] LABS: PLATELET COUNT 78 K/uL (142-355)
[2020-10-30 05:52] LABS: POTASSIUM 3.2 mmol/L (3.6-5.2)
[2020-10-30 08:00] VITALS: BP 120/37; TEMP 97.8
--- NOTE | 2020-10-30 09:07 | NUR ---
PT PEG TUBE CHECKED FOR RESIDULE. NO RESIDULE NOTED AT THIS TIME. PEG TUBE FLUSHED AND AM MEDS GIVEN. ONE CAN OF GLUCERNA 1.5 GIVEN AFTER MEDS PEG TUBE FLUSHED. TOTALS OF 240 GLUCERNA AND 220 OF FLUSH GIVEN. PT TOLERATED WELL WITHOUT DIFFICUTY OR DISTRESS NOTED. IV FLUIDS INFUSING WITHOUT DIFFICULTY AT THIS TIME. PT'S REMAINS AT BEDSIDE. NO C/O OR NEEDS NOTED. WILL CON'T TO MONITOR.
--- NOTE | 2020-10-30 09:10 | NUR ---
LUCIA FROM LAB REPORTED THAT BOTH PT'S BC WERE POSITIVE WITH E COLI. WILL INFORM DR MILLER.
--- NOTE | 2020-10-30 09:20 | NUR ---
BLOOD CULTURES RESULTS CALLED TO DR MILLER. NW ORDERS REC'D TO DC VANC AND ZOSYN AND START MEROPENEM 1GR IV EVERY 8 HRS.
--- NOTE | 2020-10-30 10:55 | NUR ---
POTASSIUM OF 3.[address] MILLER NO NEW ORDERS REC'D AT THIS TIME.
--- NOTE | 2020-10-30 12:40 | NUR ---
THIS NURSE AND REINALDO JONES RN IN TO CHANGE AND TURN PT. PT NOTED TO HAVE LARGE LOOSE BM. PT CLEANSED, YUNG CARE COMPLETED, CHUCKS, DRAW SHEET, AND GOWN CHANGED AT THIS TIME. PT TURNED TO RIGHT SIDE. HOB ELEVATED AT 30 DEGREES. HEELS FLOATED AND FOLDED SHEET PLACED BETWEEN PT'S KNEES. REDDEND AREA NOTED TO PT'S LEFT LATERAL ANKLE AREA DURING TURNING, HEEL PROTECTOR REMOVED AT THIS TIME TO AIR OUT AREA, WILL CON'T TO MONITOR REDNESS. BLANKETS LEFT OFF DUE TO PT BEING WARM TO TOUCH. PT COVERED WITH SHEET ONLY AT THIS TIME. WILL CON'T TO MONITOR PT.
--- NOTE | 2020-10-30 14:31 | NUR ---
THIS NURSE IN WITH MATT TAO TO CLEAN, CHANGE, AND TURN PT. PT NOTED TO HAVE LARGE LOOSE BM. WOUND DRESSING CHANGE COMPLETED AT THIS TIME. PT GROANED WHILE BEING CLEANED AND CHANGED. PT PLACED ON LEFT SIDE HEELS FLOATED, HOB AT 30 DEGREES. PT'S AT BEDSIDE.
[2020-10-30 16:00] VITALS: BP 159/77; TEMP 100.5
--- NOTE | 2020-10-30 17:45 | NUR ---
PT TEMP INCREASED EVEN WITH TYLENOL GIVEN. PT TEMP NOTED TO BE 102.8 AX AT THIS TIME. NOTIFIED. REC'D ORDER TO GIVEN IBPROPHEN AND CON'T TO MONITOR.
--- NOTE | 2020-10-30 18:54 | NUR ---
PT'S TEMP REASSESSED. TEMP NOTED TO BE 100.2 AX AT THIS TIME. WILL REPORT TO NEXT SHIFT TO CON'T TO MONITOR TEMP.
[2020-10-30 20:00] VITALS: BP 116/56; TEMP 100.6
--- NOTE | 2020-10-30 20:15 | NUR ---
ENTERED PATIENT'S ROOM AT THIS TIME. PATIENT RESTING QUIETLY IN BED. NC INTACT. 20G TO RT FA INFUSING D5W WITH 2 AMPS OF NA BICARB. 18FR YUNG DRAINING DARK YELLOW URINE TO BEDSIDE. SITTING AT BEDSIDE. HOB ELEVATED 45 DEGREES. 2030- RESPIRATORY PRESENT. SHE WAS ABLE TO SUCTION A SMALL AMOUNT OF SECRETIONS AND PERFORMED MOUTH CARE. APPROX. 5CC OF GRV NOTED. PM MEDICATIONS GIVEN VIA PEG TUBE. 45CC OF WATER GIVEN ALSO. PATIENT TOLERATED WELL. BED LOCKED AND IN LOWEST POSITION. SR UP X 2. CALL LIGHT WITHIN REACH OF .
--- NOTE | 2020-10-30 23:30 | NUR ---
PATIENT RESTING QUIETLY IN BED. NRB MASK INTACT- RESPIRATORY CHANGED AT 2029. PATIENT'S WOB NOTABLY IMPROVED AFTER SUCTIONING. GRV IN PEG TUBE ASSESSED- NONE NOTED AT THIS TIME. 230 OF GLUCERNA 1.5 ADMINISTERED ALONG WITH 60CC BEFORE AND AFTER. 570CC OF FLUID GIVEN ALTOGETHER. PATIENT TOLERATED WELL. HOB ELEVATED 45 DEGREES. BED LOCKED AND IN LOWEST POSITION. CALL LIGHT WITHIN REACH.
[2020-10-31] VITALS: BP 142/72; TEMP 100.6
--- NOTE | 2020-10-31 00:20 | NUR ---
TYLENOL 650MG GIVEN VIA PEG TUBE FOR TEMP OF 100.6 ALONG WITH 40CC OF WATER. PATIENT TOLERATED WELL.
--- NOTE | 2020-10-31 01:30 | NUR ---
IN WITH PCT TO TURN PATIENT AT THIS TIME. TURNED INTO RIGHT SIDE LYING POSITION. PATIENT TOLERATED WELL. NRB INTACT. BED LOCKED AND IN LOWEST POSITION. SR UP X 2. CALL LIGHT WITHIN REACH. AT BEDSIDE.
[2020-10-31 04:00] VITALS: BP 128/66; TEMP 99.8
[2020-10-31 04:53] LABS: PLATELET COUNT 77 K/uL (142-355)
[2020-10-31 08:00] VITALS: BP 141/70; TEMP 99.8
--- NOTE | 2020-10-31 09:45 | NUR ---
IN TO GIVE PATIENT MORNING MEDICATIONS. PATIENT HAD NO RESIDUAL AT THIS TIME. 60 ML ADMINISTERED BEFORE AND AFTER MEDICATIONS.
--- NOTE | 2020-10-31 10:30 | NUR ---
PATIENT HAD A FEVER OF 100.5 AXILLARY. GAVE PRN ACETAMINOPHEN PER MD ORDERS.
--- NOTE | 2020-10-31 10:45 | NUR ---
PATIENT RESTING IN BED COMFORTABLY. NAD NOTED. 230ML OF GLUCERNA 1.5 ADMINISTERED ALONG WITH 240 ML WITH BENEPROTEIN AND 60 ML BEFORE AND AFTER. A TOTAL OF 590 ML ADMINISTERED VIA PEG TUBE. PATIENT TOLERATED WELL. HOB ELEVATED TO 45 DEGREES. BED LOCKED AND IN LOWEST POSITION. WILL CONTINUE TO MONITOR. PATIENT TEMPERATURE AT THIS TIME 99.5
[2020-10-31 12:00] VITALS: BP 152/86; TEMP 99.6
--- NOTE | 2020-10-31 15:30 | NUR ---
PCT IN TO BATHE PATIENT. DRESSING AROUND PEG TUBE AND SACRUM CHANGED. NONADHERENT SPLIT DRESSING APPLIED TO PEG TUBE. SACRUM WOUND CLEANED WITH NORMAL SALINE AND DRIED. SANTYL AND FLUFFED GAUZE PLACED IN WOUND AND COVERED WITH DUODERM DRESSING. PATIENT TOLERATED WELL.
--- NOTE | 2020-10-31 15:37 | NUR ---
PATIENT HAS A TEMPERATURE OF 100.5. PRN IBUPROFEN GIVEN PER MD ORDERS. PATIENT TOLERATED WELL. NAD NOTED.
--- NOTE | 2020-10-31 16:50 | NUR ---
PATIENT HAD A RESIDUAL OF 50 ML AT THIS TIME. ABDOMEN DISTENDED AT THIS TIME. PATIENT DOES NOT GRIMACE WITH PALPATION. FEEDING HELD AT THIS TIME. NAD NOTED.
[2020-10-31 19:54] VITALS: BP 138/78; TEMP 99.2
--- NOTE | 2020-10-31 21:36 | NUR ---
NO RESIDUAL NOTED AT THIS TIME FOR MEDICATION PASSAGE. FLUSHED WITH 60 ML OF WATER BEFORE MEDICATION ADMINISTRATION VIA G TUBE. ADMINISTERED CRUSHED APPROPRIATE MEDICATIONS. FLUSHED WITH 60 ML OF WATER AFTER ADMINISTRATION. PT. TOLERATED WELL. PERICARE PROVIDED TO PT AT THIS TIME. MOUTH CARE PROVIDED TO PT AT THIS TIME. THICK OCHOA COPIOUS SPUTUM WAS OBERVED AFTER SUCTIONING PT. PT PULLED VENTI MASK OFF DURING THIS TIME. PT WAS IN A HIGH FOWLERS POSITION WITH SIDE RAILS UP TIMES TWO AND BED IN THE LOWEST POSITION.
--- NOTE | 2020-10-31 23:23 | NUR ---
PATIENT RESTING QUIETLY IN BED IN HIGH FOWLERS POSITION WITH EYES CLOSED. NAD NOTED WITH PATIENT AT THIS TIME.
[2020-10-31 23:59] VITALS: BP 147/80; TEMP 97.8
--- NOTE | 2020-11-01 03:30 | NUR ---
PT HAD A LARGE, LOOSE BOWEL MOVEMENT AT THIS TIME. PT'S LINENS WERE CHANGED. PT HAD A BATH AND GOWN WAS CHANGED AT THIS TIME. PT WAS VERY RESPONSIVE TO VERBAL AND TACTILE STIMULI WHILE BATHING HIM.
--- NOTE | 2020-11-01 03:50 | NUR ---
RESPIRATORY THERAY AT BEDSIDE CHANGING 02 DEVICE TO 5 L NC AND IS CURRENTLY SATTING AT 96% AT THIS TIME AND TOLERATING WELL.
[2020-11-01 04:00] VITALS: BP 158/81; TEMP 99
[2020-11-01 06:35] LABS: PLATELET COUNT 79 K/uL (142-355)
[2020-11-01 08:00] VITALS: BP 170/82; TEMP 99.7
--- NOTE | 2020-11-01 09:30 | NUR ---
PATIENT HAD NO RESIDUAL AT TIME OF MEDICATION ADMINISTRATION. PATIENT HAD A TEMPERATURE OF 100.5. PRN TYLENOL GIVEN AT THIS TIME VIA PEG TUBE. PATIENT BP WAS 170/82. PRN HYDRALAZINE GIVEN PER MD ORDERS. NAD NOTED AT THIS TIME. PATIENT IN HIGH BUTT'S. UPPER SIDE RAILS UP X2. BED IN LOWEST POSITION.
--- NOTE | 2020-11-01 10:00 | NUR ---
SCOPOLAMINE PATCH PLACED BEHIND LEFT EAR. PATIENT KEPT PULLING OFF SPO2 SENSOR. WRAPPED WITH COBAND. PATIENT ASKED TO KEEP IN PLACE. PATIENT ATTEMPTED TO SWAT DERMATOLOGY TECHNICIAN DURING REPLACEMENT. PATIENT SEEMS AGITATED. NAD NOTED. HOB AT 30 DEGREES. SIDE RAILS UP X2.
--- NOTE | 2020-11-01 11:00 | NUR ---
PATIENT HAD NO RESIDUAL AT TIME OF FEEDING. ADMINISTERED 230 ML OF GLUCERNA 1.5. ADMINISTERED 120ML WITH BENEPROTEIN. WITH 60 ML BEFORE AND AFTER FOR A TOTAL OF 670 ML VIA PEG TUBE. PATIENT TOLERATED WELL. NAD NOTED. HOB AT 45 DEGREES. SIDE RAILS UP X2. BED IN LOWEST POSITION. CALL LIGHT WITHIN REACH.
--- NOTE | 2020-11-01 12:00 | NUR ---
PCT ADVISED ME OF PATIENTS TEMPERATURE OF 100.8. ADMINISTERED ONE TIME DOSE OF IBUPROFEN BY VERBAL ORDER PER MD.
--- NOTE | 2020-11-01 12:10 | NUR ---
3 UNITS OF INSULIN GIVEN PER MD ORDERS PER SLIDING SCALE. PATIENT TOLERATED WELL.
--- NOTE | 2020-11-01 12:30 | NUR ---
PATIENT BLOOD PRESSURE 161/73 AND HR OF 135. PRN LABETALOL GIVEN PER MD ORDERS. WILL CONTINUE TO MONITOR. NAD NOTED. PATIENT ON 5L NC WITH HOB ELEVATED TO 30.
--- NOTE | 2020-11-01 16:42 | NUR ---
10/31/[address] MILLER TOLD ME TO LET THE PT MRS. MOJICA KNOW THAT SHE WOULD HAVE TO RESUME REGULAR VISITING HOURS BECAUSE WE NOW HAVE A COVID ADMISSION.AROUND 10 AM I LET MRS MOJICA KNOW WHAT THE ATTENDING MD SAID. MRS MOJICA INFORMED ME SHE WAS NOT HAPPY BUT SHE WOULD DEAL WITH IT.
--- NOTE | 2020-11-01 17:45 | NUR ---
PERFORMED DRESSING CHANGE TO SACRUM WOUND. SCANT AMOUNT OF BRIGHT RED BLOOD AROUND WOUND BED. 98% OF WOUND BED STILL ESCHAR. 4X4 TO WOUND BED NOTED TO BE SATURATED WITH DRAINAGE. WOUND CLEANED WITH SALINE AND DRIED WITH 4X4. 4X4 WITH SANTYL PLACED ON ESCHAR. COVERED WITH A DUODERM DRESSING. SMALL OPEN AREA NOTED ON RIGHT BUTTOCK CLOSE TO RECTUM. CHARGE NURSE NOTIFIED. PATIENT TOLERATED WELL. NAD NOTED. WILL CONTINUE TO MONITOR.
[2020-11-01 20:11] VITALS: BP 168/79; TEMP 98.6
--- NOTE | 2020-11-01 21:55 | NUR ---
PT CHANGED FROM 5L/M-4L/M NC AT THIS TIME. WILL MONITOR TOLERATION IN THE NEXT HOUR TO MONITOR FOR ANY FURTHER INTERVENTIONS NECESSARY.
[2020-11-02 00:08] VITALS: BP 181/80; TEMP 98.8
--- NOTE | 2020-11-02 02:40 | NUR ---
TYLENOL GIVEN AT THIS TIME DUE TO POSSIBLE PAIN UPON STIMULATION DURING WOUND CARE AT THIS TIME. LABETALOL ALSO GIVEN AT THIS TIME DUE TO A BP OF 181/80. WILL MONITOR FOR MEDICATION EFFECTIVENESS.
--- NOTE | 2020-11-02 02:44 | NUR ---
PT HAD A LARGE, LOOSE BOWEL MOVEMENT AT THIS TIME IN PT'S BRIEF.
--- NOTE | 2020-11-02 02:45 | NUR ---
GAVE GLUCERNA WITH 2 SCOOPS OF BENEPROTEIN AT THIS TIME. FLUSHED WITH 60 ML OF WATER BEFORE AND AFTER FOOD ADMINISTARTION. PT TOLERATED WELL. PT IN HIGH FOWLERS POSITION AND SPEAKING IN A GARBLED VOICE AT THIS TIME.
--- NOTE | 2020-11-02 02:50 | NUR ---
50 * 35 CM RIGHT SACRAL WOUND MEASURED AT THIS TIME. PERFORMED DRESSING CHANGE AT THIS TIME TO RIGHT SACRAL WOUND. 4 BY 4 GAUZE WITH SANTYL PLACED ON ESCHAR AREA OF THE WOUND. COVERED WITH DUODERM DRESSING. PT TOLERATED WELL.
--- NOTE | 2020-11-02 02:57 | NUR ---
LORAZEPAM 1MG GIVEN AT THIS TIME DUE TO ANXIOUS BEHAVIOR DURING THE TIME OF CLEANING PT UP FROM HAVING A BOWEL MOVEMENT.
--- NOTE | 2020-11-02 03:00 | NUR ---
LEFT HEEL PRESSURE INJURY MEASURED AT 0.9 BY 0.6 AT THIS TIME. INJURY WAS WARM AND DRY. LEFT LEG HARDENED- ERRYTHEMUOS INJURY AREA MEASURED AT 3.4 BY 1 AT THIS TIME.
[2020-11-02 04:02] VITALS: BP 155/74; TEMP 98.1
[2020-11-02 05:22] LABS: PLATELET COUNT 105 K/uL (142-355)
[2020-11-02 05:37] LABS: POTASSIUM 4.2 mmol/L (3.6-5.2)
[2020-11-02 08:00] VITALS: BP 128/55; TEMP 99.2
--- NOTE | 2020-11-02 13:21 | NUR ---
GAVE PT 1 BOTTLE OF GLUCERNA 1.5 MIXED WITH 2 SCOOPS OF BENEPROTEIN. FLUSHED WITH 60ML OF WATER BEFORE AND AFTER. NO RESIDUAL WAS PRESENT BEFORE FEEDING. PT TOLERATED FEEDING WELL. BED IS AT 45 DEGREE ANGLE.
--- NOTE | 2020-11-02 15:45 | NUR ---
SHEETER MACHINE OPERATOR WITH ASSISTANCE FROM [facility] [employer] STAFF ROLLED PT TO RIGHT SIDE TO OBSERVE SACRAL WOUND. WOUND DRESSING WAS DRY AND INTACT, LAST DRESSING CHANGE WAS GIVEN DURING AUXILIARY PLANT OPERATOR, NO CARE WAS GIVEN TO THE SACRAL WOUND AT THIS TIME. PT WAS VERY RESTLESS AND GARBLING. DR. BILLINGS WAS CONTACTED AND PUT IN AN ORDER FOR LORAZEPAM AND IBUPROFEN. AFTER BEING ROLLED TO THE RT SIDE PT BEGAN TO REFLECT AN O2 SATURATION OF 88%. RT WAS CONTACTED, RT CAME TO PT'S ROOM AND INCREASED O2 TO 5LPM FROM 2LPM. PT IS NOW REFLECTING AN O2 SATURATION OF 94%.
--- NOTE | 2020-11-02 17:52 | NUR ---
CALLED TO ROOM BY RN DUE TO DECREASED SPO2. PATIENT 88% ON 2LPM. INCREASED TO 3LPM WITH NO INCREASE. INCREASED TO 5LPM. PATIENT HAS HR OF 120 AT THIS TIME. PER , PATIENT IS IN PAIN. SPOKE WITH RN, PATIENT HAS JUST BEEN TURNED. LET HER KNOW THAT PATIENT IS NOW ON 5LPM AND WE WILL WEAN TOLERATED BACK TO 2LPM. SPO2 NOW AT 92%.
[2020-11-02 20:00] VITALS: BP 179/94; TEMP 99.8
[2020-11-03 00:01] VITALS: BP 149/79; TEMP 98.5
[2020-11-03 04:00] VITALS: BP 152/64; TEMP 99.3
[2020-11-03 04:30] LABS: PLATELET COUNT 130 K/uL (142-355)
[2020-11-03 05:15] LABS: POTASSIUM 4.6 mmol/L (3.6-5.2)
[2020-11-03 08:00] VITALS: BP 166/73; TEMP 98.9
--- NOTE | 2020-11-03 09:00 | NUR ---
WHILE ADMINISTERING MORNING MEDICATIONS, THE PEG TUBE SHOWED >60ML OF RESIDUAL. UPON ATTEMPT TO GIVE CRUSHED MEDS THROUGH PEG TUBE, TUBE BEGAN TO QUIT DRAINING. MILLER HENRANDEZ RN CAME IN TO ASSIST, SHE PULLED BACK RESIDUAL AND IT WAS STILL >60 ML. SHE ASSISTED WE FLUSHED WITH WATER AND ADMINISTERED A DOSE OF ACETAMINOPHEN AND FLUSHED AGAIN. AT THIS TIME PEG TUBE FLUSHED WITHOUT DIFFICULTY.
--- NOTE | 2020-11-03 09:45 | NUR ---
PT'S BLOOD PRESSURE WAS 166/73 WITH A PULSE OF 94. CONTROL VALVE MECHANIC ADMINISTERED 2ML OF PRN LOBETALOL.
--- NOTE | 2020-11-03 10:05 | NUR ---
O2 MONITOR IN NURSING STATION ALERT WENT OFF. PT'S O2 SATURATION WAS DROPPING. DINH STREETER CNA AND MILLER HERNANDEZ RN WENT TO ROOM WHERE O2 SATURATION WAS IN THE 30-40% RANGE. AT [address] BILLINGS WAS CONTACTED. RT PLACED A NONREBREATHER ON PT. PT'S CONTACTED FAMILY TO COME IN.
--- NOTE | 2020-11-03 10:30 | NUR ---
DR. BILLINGS SPOKE WITH FAMILY AND EXPLAINED SITUATION. DR. BILLINGS PUT IN ORDERS FOR LARAZEPAM AND MORPHINE PRN. AT THIS TIME PT'S O2 HAS BEGUN TO INCEASE.
--- NOTE | 2020-11-03 10:45 | NUR ---
MILLER HERNANDEZ RN ENTERED PT'S ROOM REQUESTED BY PT'S BROTHER. WHILE IN THE PT'S ROOM, THE PT'S BROTHER BECAME UPSET WHEN THE O2 MONITOR WENT OFF DUE TO THE FINGERPEICE COMING OFF OF THE FINGER AND SHOVED MILLER TOWARDS THE PT. DANIELLE ELLIOTT NURSE AIR BRAKE WORKER WAS NOTIFIED OF THE INCIDENT AND WENT AND SPOKE WITH THE PT'S FAMILY. NO FURTHER ISSUES HAVE OCCURRED
--- NOTE | 2020-11-03 11:12 | NUR ---
ENTERED PT'S ROOM TO TAKE VITAL SIGNS. PT HAS 4 FAMILY MEMBERS AT BEDSIDE. AT THIS TIME PT IS NOW MAINTAINING AN O2 SATURATION IN THE 98-100% RANGE. PT IS STILL EXHIBITING SOME LABORED BREATHING AND LOOSE RATTLING AT THIS TIME.
--- NOTE | 2020-11-03 11:45 | NUR ---
PT'S FAMILY HAS ASKED IF THEY CAN STAY C++ PROFESSOR. QUESTION WAS BROUGHT TO DANIELLE ELLIOTT NURSE ASSISTANT MANAGER QUALITY MANAGEMENT. DANIELLE STATED THAT THE AND DAUGHTER COULD STAY BUT THE REST OF THE FAMILY CAN ONLY COME DURING VISITING HOURS. PT'S FAMILY VERBALIZED UNDERSTANDING. RT CAME IN AND PUT THE PT BACK ON NASAL CANULA AT 5LPM. PT IS NOW MAINTAINING AT O2 SATURATION OF 97%. WILL CONTINUE TO MONITOR.
[2020-11-03 12:00] VITALS: BP 154/58; TEMP 98.3
--- NOTE | 2020-11-03 12:06 | NUR ---
CHANGED BACK TO 5 NC FROM NRB AND PATIENT SAT IN 93%.
--- NOTE | 2020-11-03 16:30 | NUR ---
VISITED PT'S ROOM, PT HAS TWO VISITORS AT BEDSIDE. LEFT TO GO HOME AND REST. PT IS RESTING IN LF WITH BR UP X2. O2 SATURATION IS MAINTAINING AT 97%.
--- NOTE | 2020-11-03 17:00 | NUR ---
PT HAS SON, BROTHER, AND SON'S FATHER IN [place] AT BEDSIDE. UPON ENTERING THE ROOM THEY WANTED AN UPDATE ON PT'S STATUS. STEAM FRAME OPERATOR RESPONDED BY STATING THAT THE PT HAD A ROUGH MORNING WHERE HIS O2 SATURATION DROPPED BUT THAT WE NOW HAVE IT IN A NORMAL RANGE AND IT IS MAINTAINING WHERE IT SHOULD BE. IT WAS EXPLAINED THAT THE PT IS RECIEVING LORAAZEPAM PRN FOR ANXIETY TO CALM THE LABORED BREATHING AND MOANING. FAMILY VERBALIZED UNDERSTANDING. PT'S SON, SULTANA MOJICA, ASKED IF HIS PHONE NUMBER CAN BE ADDED TO THE CHART IN CASE OF EMERGENCY. STEAM FRAME OPERATOR WILL ASK CHARGE NURSE IF THIS IS POSSIBLE. PT IS NOW RESTING, BREATHING IS LESS LABORED AFTER LORAZEPAM ADMINISTRATION AND O2 SATURATION IS REMAINING AT 96% ON NASAL CANULA AT 5LPM.
--- NOTE | 2020-11-03 18:30 | NUR ---
PT RECIEVED FEEDING, NO RESIDUAL WAS FOUND SO FEEDING WAS GIVEN. PT RECIEVED 1 BOTTLE OF GLUCERNA 1.5 ALONG WITH 2 SCOOPS OF BENEPROTEIN. PEG TUBE WAS FLUSHED BEFORE AND AFTER FEEDING WITH 60ML OF WATER. PT TOLERATED FEEDING WELL. PEG TUBE WAS CLOSED AND PT RECOVERED. PT IS CURRENTLY MAINTAINING A SATURATION OF 96% WITH THE NASAL CANULA ON AT 5LPM.
--- NOTE | 2020-11-03 18:31 | NUR ---
PT'S WAS CONTACTED AND ASKED IF IT WAS OK TO ADD THE SON'S NAME TO THE CHART AND GIVE OUT MEDICAL UPDATES TO THE SON. PT'S WHO IS THE POWER OF LAYER OFF STATED THAT "IT IS ABSOLUTELY OK TO GIVE INFORMATION TO HIS SON. PLEASE FEEL FREE TO CONTACT HIM TOO IN THE CASE OF AN EMERGENCY." STATED THIS TO BRILLIANDEER LOOPER AND ALSO TO GODFREY OVALLE RN. SON'S PHONE NUMBER WILL BE ADDED TO THE CHART.
[2020-11-03 20:00] VITALS: BP 178/71; TEMP 99.8
[2020-11-04 00:26] VITALS: BP 184/73; TEMP 100.7
[2020-11-04 04:00] VITALS: BP 188/71; TEMP 102
[2020-11-04 04:36] LABS: PLATELET COUNT 214 K/uL (142-355)
[2020-11-04 04:38] LABS: POTASSIUM 5.8 mmol/L (3.6-5.2)
[2020-11-04 08:00] VITALS: BP 168/63; TEMP 101.1
--- NOTE | 2020-11-04 09:06 | NUR ---
PT SATS DROPPED TO MID 80'S. ENTERED ROOM, PT COLOR DUSKY, LABORED BREATHING NOTED, SECRETIONS AROUND LIPS. PT REPOSITIONED TO RT SIDE, HOB ELEVATED, PT SX, MODERATE AMT CLEAR AND WHITE SECRETIONS REMOVED. CANISTER CHANGED.
--- NOTE | 2020-11-04 10:00 | NUR ---
PATIENT GIVEN LABETALOL AND GOLYTELY AT THIS TIME. PATIENT BP WAS 168/63 AND HR WAS 119.
--- NOTE | 2020-11-04 10:30 | NUR ---
PATIENT DESATS TO 77. RESPIRATORY NOTIFIED AND PATIENT PLACED BACK ON NRB. PATIENTS SATS IMPROVED TO 84. WILL CONTINUE TO MONITOR.
--- NOTE | 2020-11-04 11:25 | NUR ---
PATIENT DROPPIN SAT SO CHANGED FROM NC AT 5LPM TO NRB.
--- NOTE | 2020-11-04 11:30 | NUR ---
DR. BILLINGS NOTIFIED OF PATIENT O2 SATS. ASKED DR. BILLINGS TO D/C PULSE OX. PATIENT'S ASKE TO LEAVE IN PLACE BECAUSE IT HELPS HER TO UNDERSTAND THE REALITY. ADVISED THAT REMOVING THE PULSE OX COULD HELP DECREASE HER ANXIETY. SHE WAS STILL ADAMANT TO LEAVE IT IN PLACE.
--- NOTE | 2020-11-04 11:31 | NUR ---
PATIENT GIVEN PRN MORPHINE FOR SHORTNESS OF BREATH. PATIENT TOLERATED WELL. WILL CONTINUE TO MONITOR.
[2020-11-04 12:00] VITALS: BP 163/62; TEMP 100.1
--- NOTE | 2020-11-04 12:00 | NUR ---
PATIENT'S SON GIVEN AN UPDATE.
--- NOTE | 2020-11-04 12:28 | NUR ---
11/04/2020 1210 WENT IN TO ROOM WITH PT NURSE HEATHER TO SPEAK WITH PT AND FAMILY MEMBER.TALKED WITH ABOUT IMPORTANCE OF CARE AND COMFORT MEASURES REASURED HER THAT WE WILL STILL BE COMING IN FREQUENTLY TO CHECK ON PATIENT.AND ALSO WE CAN REMOVE HEART MONITOR FOR COMFORT FOR PT AND FAMILY. STATED SHE WOULD LIKE TO KEEP IT ON AT THIS TIME SO SHE CAN GET MORE PREPARED FOR WHEN THE TIMES COMES.TOLD HER TO CALL IF SHE NEEDS ANYTHING AT THIS TIME.CALL LIGHT WITHIN REACH BLANKET PROVIDED TO PATIENT.CC
--- NOTE | 2020-11-04 12:40 | NUR ---
PATIENT STILL FLUCTUATING AT O2 SAT OF 77-85. WILL CONTINUE TO MONITOR.
--- NOTE | 2020-11-04 13:30 | NUR ---
PATIENT O2 SATS AT 100% ON NRB AND DESATS TO 84%. PATIENT RECOVERS QUICKLY. PATIENT HAS LABORED RESPIRATIONS. WILL CONTINUE TO MONITOR.
--- NOTE | 2020-11-04 15:35 | NUR ---
PATIENT APPEARS RESTLESS AND BEGAN TO MOAN. 1 MG OF PRN ATIVAN GIVEN PER MD ORDERS. PATIENT TOLERATED WELL. WILL CONTINUE TO MONITOR.
--- NOTE | 2020-11-04 17:00 | NUR ---
ASKED FOR C PROGRAMMER NOT TO PERFORM DRESSING CHANGE. SHE WOULD LIKE FOR PATIENT TO REMAIN RESTING. PATIENT HAS LABORED BREATHING WITH BRIEF PERIODS OF APNEA. PATIENT SATS AT 100% AND DESATS TO 84 AT TIMES. ASKED IF DRESSING CHANGE COULD BE COMPLETED AT A LATER TIME. WILL NOTIFY PM SHIFT.
--- NOTE | 2020-11-04 18:00 | NUR ---
PATIENT HAD 10ML OF RESIDUAL. FED PATIENT 50ML OF GLUCERNA 1.5. PATIENT TOLERATED WELL. NAD NOTED.
--- NOTE | 2020-11-04 19:30 | NUR ---
PT IS IN A HIGH-FOWLERS POSITION, SIDE RAILS UP TIMES TWO, BED IN LOWEST POSITION, SPEAKING IN A GARBLED VOICE WITH AN OXYGEN SATURATION OF 82 % AT THIS TIME.
[2020-11-04 19:57] VITALS: BP 167/59; TEMP 99.7
--- NOTE | 2020-11-04 20:42 | NUR ---
ATTEMPTED TO ADMINISTER NIGHT MEDICATIONS VIA G TUBE. FLUSHED 60 ML OF WATER EFFECTIVELY BEFORE ATTMEPT TO ADMINISTER MEDICATIONS. MEDS COULD NOT BE EFFECTIVELY ADMINSITERED AT THIS TIME.
--- NOTE | 2020-11-04 20:42 | NUR ---
ATTEMPTED TO ADMINISTER PM MEDICATIONS VIA G-TUBE. FLUSHED 60 ML OF WATER EFFECTIVELY BEFORE ATTEMPT TO ADMINISTER MEDICATIONS. PM MEDS COULD NOT BE GIVEN DUE TO RESIDUAL VISUALIZED DURING ADMINISTRATION.
[2020-11-05 00:18] VITALS: BP 187/78; TEMP 98.2
--- NOTE | 2020-11-05 00:29 | NUR ---
LABETALOL 10 MG IVP GIVEN AT THIS TIME. BP WAS 187/78. PT. TOLERATED WELL. WILL CONTINUE TO MONITOR MEDICATION EFFECTIVENESS AT THIS TIME. PT MOANING IN A GARBLED TONE AT THIS TIME WITH SIDE RAILS UP TIMES TWO, BED IN LOWEST POSITION, AND SATTING AT 85. AT BEDSIDE.
--- NOTE | 2020-11-05 00:41 | NUR ---
MORPHINE 2 MG IVP GIVEN AT THIS TIME DUE TO VISUALIZED LABORED BREATHS AND AUDIBLE GARBLED MOANING TONE. AT BEDSIDE. BED IN LOWEST PSOITION AND PT IN HIGH FOWLERS POSITION.
--- NOTE | 2020-11-05 01:15 | NUR ---
PATIENT CONTINUES TO HAVE LABORED AND SHALLOWED BREATHING AND MOANING. AT BEDSIDE.
--- NOTE | 2020-11-05 02:15 | NUR ---
PATIENT IN HIGH FOWLERS POSITION RECEIVING OXYGEN VIA NRB AT 15LPM. PATIENT'S OXYGEN SATURATION IS 84% AND HR 123 AT THIS TIME. AT BEDSIDE.
--- NOTE | 2020-11-05 02:15 | NUR ---
PATIENT RESTING COMFORTABLY IN HIGH FOWLERS POSITION WITH NAD NOTED AT THIS TIME. PATIENT IN RECLINER AT BEDSIDE ASLEEP.
--- NOTE | 2020-11-05 03:20 | NUR ---
PATIENT MOANING WITH LABORED AND SHALLOW BREATHING. MORPHINE 2MG GIVEN VIA IVP PER PHYSICIAN PRN ORDERS.
--- NOTE | 2020-11-05 03:33 | NUR ---
PATIENT REPOSITIONED ONTO LEFT SIDE WITH PILLOWS PLACED BEHIND TORSO FOR SUPPORT AND UNDER DANIELLE LOWER EXT AND FEET WITH HEELS FLOATING. PATIENT MOANING WITH LABORED AND SHALLOWING BREATHING NOTED. AT BEDSIDE.
--- NOTE | 2020-11-05 03:50 | NUR ---
PATIENT'S TEMP IS 100.0 AXILLARY. TYLENOL 650MG GIVEN VIA PEG TUBE WITH NO RESIDUAL NOTED TO TUBE AT THIS TIME. PEG TUBE FLUSHED WITH FREE WATER BEFORE AND AFTER ADMINISTERING TYLENOL. PATIENT CONTINUES TO MOAN WITH LABORED AND SHALLOW BREATHING NOTED AT THIS TIME.
[2020-11-05 04:07] VITALS: BP 159/69; TEMP 100
--- NOTE | 2020-11-05 04:45 | NUR ---
LAB AT BEDSIDE FOR AM LAB DRAWS
[2020-11-05 05:11] LABS: PLATELET COUNT 259 K/uL (142-355)
[2020-11-05 05:28] LABS: POTASSIUM 4.9 mmol/L (3.6-5.2)
[2020-11-05 08:00] VITALS: BP 160/70; TEMP 100.8
--- NOTE | 2020-11-05 10:00 | NUR ---
IN FOR MORNING MEDICATIONS. PATIENT HAD 10 ML RESIDUAL. MEDICATIONS ADMINISTERED WITH 60 ML BEFORE AND AFTER FLUSH. QUESTRAN GIVEN WITH 60 ML FOR A TOTAL OF 240ML GIVEN AT THIS TIME. PATIENT SATTING AT 94%. BREATHING STILL LABORED.
--- NOTE | 2020-11-05 10:24 | NUR ---
PATIENT CALLED TO ASK EXT JS DEVELOPER TO CHECK ON PATIENT. PATIENT APPEARS RESTLESS. 1 MG OF ATIVAN GIVEN PER MD ORDERS. PATIENT RESTING CALMLY NOW.
--- NOTE | 2020-11-05 11:47 | NUR ---
PATIENT MOANING AND SHAKING. 1 MG OF LORAZEPAM GIVEN PER MD ORDERS. PATIENT TOLERATED WELL. WILL CONTINUE TO MONITOR.
[2020-11-05 12:00] VITALS: BP 160/70; TEMP 100.8
--- NOTE | 2020-11-05 12:00 | NUR ---
PATIENT CALLED TO ASK FOR A TEMPERATURE CHECK. PATIENT TEMP AT THIS TIME 99.0. PATIENT RESTING PEACEFULLY. BREATHING IS STILL LABORED. PATIENT SATTING AT 92%. WILL CONTINUE TO MONITOR.
--- NOTE | 2020-11-05 14:10 | NUR ---
PRN TYLENOL GIVEN PER MD ORDERS FOR TEMP OF 100.8. PATIENT SATTING AT 98%. LABORED BREATHING. PATIENT HAS NO RESIDUAL. 200ML GLUCERNA 1.5 FED TO PATIENT AT THIS TIME VIA PEG TUBE. PATIENT TOLERATED WELL. WILL CONTINUE TO MONITOR.
--- NOTE | 2020-11-05 17:00 | NUR ---
DRESSING CHANGE TO PEG TUBE AND SACRUM CHANGED DURING BED BATH. PATIENT TOLERATED WELL. CHARGE NURSE NOTIFIED AND AWARE OF CHANGES TO WOUND. WOUND BED BEEFY RED WIHT NO ESCHAR. WOUND MEASURES 6.6CM X5.2CM X0.6CM. CLEANED WITH NORMAL SALINE AND PATTED DRY. AQUAGEL PLACED ON WOUND BED. COVERED WITH DUODERM. PATIENT TOLERATED WELL. WILL CONTINUE TO MONITOR.
--- NOTE | 2020-11-05 20:05 | NUR ---
PATIENT IN HIGH FOWLERS POSITION ON LEFT SIDE AND RECEIVING OXYGEN VIA NON-REBREATHER AT 15LPM AND ON THE OXYGEN MONITOR. AGONAL BREATHING WITH USE OF ACCESSORY MUSCLES NOTED.
[2020-11-05 20:19] VITALS: BP 126/48; TEMP 98.4
--- NOTE | 2020-11-05 21:25 | NUR ---
PATIENT'S PEG TUBE ASSESSED, APPROXIMATELY 45ML OF RESIDUAL NOTED AT THIS TIME. PM MEDICATIONS TO BE ADMINISTERED VIA PEG TUBE HELD AT THIS TIME.
--- NOTE | 2020-11-05 21:50 | NUR ---
PATIENT SUCTIONED WITH MODERATE AMOUNT OF THICK TANNED SECRETIONS REMOVED. PATIENT REPOSITIONED ONTO RIGHT SIDE, DANIELLE HEELS FLOATING ON PILLOWS AND PILLOWS PLACED BEHIND UPPER TORSO AND LOWER EXT FOR SUPPORT. PATIENT'S OXYGEN SATURATION DECREASED TO 76% AND HEART RATE IS 113, MORPHINE 2MG GIVEN VIA SIVP PER PHYSICIAN'S PRN ORDERS.
--- NOTE | 2020-11-05 21:55 | NUR ---
INCREASED LABORED AND SHALLOW BREATHING NOTED WITH USE OF ACCESSORY MUSCLES. WILL CONTINUE TO MONITOR FOR THERAPEUTIC EFFECTS OF MORPHINE. CHARGE NURSE NOTIFIED OF PATIENT'S CHANGE IN CONDITION.
--- NOTE | 2020-11-05 22:20 | NUR ---
AND PATIENT'S SISTER IN LAW AT BEDSIDE. UPDATED ON PATIENT'S DECLINING OXYGEN SATURATION LEVELS. PATIENT'S V/O UNDERSTANDING AND DENIES ANY FURTHER QUESTIONS OR C/O AT THIS TIME.
--- NOTE | 2020-11-05 22:45 | NUR ---
PATIENT'S SON AT BEDSIDE AND UPDATED HIM OF PATIENT'S DECLINE IN OXYGEN SATURATION RATE. NO FURTHER QUESTIONS OR C/O AT NOTED FROM PATIENT'S SON AT THIS TIME.
[2020-11-05 23:58] VITALS: BP 191/78; TEMP 99.5
--- NOTE | 2020-11-06 00:15 | NUR ---
MORPHINE 2MG GIVEN VIA SIVP PER PHYSICIAN PRN ORDERS FOR AGONAL BREATHING. EDUCATED PATIENT'S AND SON AT BEDSIDE ON THE BENEFITS OF ADMINISTERING MORPHINE, BOTH VERBALIZED THEIR UNDERSTANDING AND EXPRESSED THEIR APPRECIATION FOR THE CARE PROVIDED TO PATIENT. LABETOLOL 10MG GIVEN VIA SIVP FOR INCREASED BLOOD PRESSURE. PATIENT TOLERATED THE ADMINISTRATION OF BOTH MEDICATIONS WITHOUT DIFFICULTY. NO REDNESS, EDEMA OR DRAINAGE NOTED TO IV SITE AT RFA WITH 20G JELCO.
--- NOTE | 2020-11-06 00:24 | NUR ---
MORPHINE 2 MG GIVEN AT THIS TIME. LABORED AND SHALLOW BREATHING VISUALIZED ALONG WITH ABDOMINAL BREATHING. 02 SATURATION IS 82% AT THIS TIME.
--- NOTE | 2020-11-06 01:50 | NUR ---
PATIENT'S AXILLARY TEMP IS 102 WITH LABORED AND SHALLOW BREATHING WITH USE OF ACCESSORY MUSCLES. RECEIVED NEW VERBAL ORDERS FROM PHYSICIAN FOR ACETAMINOPHEN 1GM IV AND ADMINISTERED SAME ALONG WITH MORPHINE 2MG IVP PER PHYSICIAN PRN ORDERS. PATIENT'S AND SON AT BEDSIDE AND DENIES ANY QUESTIONS OR C/O AT THIS TIME.
--- NOTE | 2020-11-06 02:59 | NUR ---
AT 2200 PATIENTS RESPIRATIONS INCREASED AND HIS O2 SATURATION DROPPED TO THE MID 60S. AFTER ASSESING THE PT. HE WAS SUCTIONED AND REPOSITIONED. HIS NURSE AND I DECIDED IT WAS A GOOD TIME TO CALL THE FAMILY IN TO SEE HIM. I CALLED THE PATIENTS AND SON. PATIENTS FAMILY IS AT BEDSIDE.
[2020-11-06 03:27] VITALS: BP 187/85; TEMP 102
--- NOTE | 2020-11-06 03:35 | NUR ---
PT. TEMP AT THIS TIME WAS 100.9 AXILLARY. GAVE TYLENOL 650 MG VIA PEG TUBE AT THIS TIME. WILL FURTHER MONITOR MEDICATION EFFECTIVENESS.
--- NOTE | 2020-11-06 07:00 | NUR ---
REFUSED MORNING VITALS SIGNS AND GLUCOSE CHECK.
--- NOTE | 2020-11-06 08:07 | NUR ---
Met with the family (, son, brother) at bedside with patient nurse present to discuss care plan. The family was advised of options that included care and comfort and hospice. The family would like to see how today goes then make a decision on how to proceed. had requested the nursing staff not to continue with the glucose finger sticks at this time and to obtain vitals less frequently.
--- NOTE | 2020-11-06 08:45 | NUR ---
PATIENT CALLED ASKING FOR MORPHINE FOR PATIENT BECAUSE HE WAS HAVING DIFFICULTY BREATHING. PATIENT NOTED TO HAVE AGONAL BREATHS WITH PERIODS OF APNEA. PATIENT SATTING AT 77. WILL CONTINUE TO MONITOR.
--- NOTE | 2020-11-06 09:00 | NUR ---
JAYLENE GOLDBERG FROM AT BEDSIDE. PATIENTS ADVISED OF OPTIONS TO CHOOSE TO CONTINUE WITH CURRENT TREATMENT, CHANGE TO COMFORT AND CARE, OR TO HOSPICE. ASKED FOR SOME TIME TO MAKE A DECISION AND TO STAY WITH CURRENT TREATMENT FOR NOW. PATIENT'S SON AND BROTHER ALSO AT BEDSIDE.
--- NOTE | 2020-11-06 10:45 | NUR ---
IN TO GIVE MORNING MEDICATIONS. WITH LUIS MIGUEL MILIAN. DISCUSSED FEEDINGS AND MEDICATIONS WITH . ASKED FOR PATIENT TO BE PLACED ON CARE AND COMFORT. PATIENT HAD NO RESIDUAL. ATTEMPTED TO GIVE MORNING MEDICATIONS BUT ONLY 50 ML ADMINISTERED OF QUESTRAN. PATIENT STILL HAS LABORED RESPIRATIONS.
--- NOTE | 2020-11-06 13:00 | NUR ---
PATIENTS ASKED FOR SURVIVAL EQUIPMENT REPAIRER TO CHECK PATIENTS TEMP. PATIETN TEMP 97. PATIENT RESTING IN BED WITH LABORED RESPIRATIONS. PATIENT IS SATTING AT 87%. WILL CONTINUE TO MONITOR.
--- NOTE | 2020-11-06 15:00 | NUR ---
PATIENTS REQUESTED THAT DRESSING CHANGE BE DONE AFTER VISITORS LEAVE.
--- NOTE | 2020-11-06 16:01 | NUR ---
AROUND 1400, MOTORIZED [employer] LIEUTENANT AND NURSE HIRAL CHAVIRA RN SPOKE WITH PATIENT ABOUT NEW VISITATION POLICY. VERBALLY EXPRESSED UNDERSTANDING. SHARED THE VISITATION POLICY WITH REST OF FAMILY.
[2020-11-06 19:01] VITALS: BP 76/37; TEMP 99.9
--- NOTE | 2020-11-06 20:15 | NUR ---
PT. IN HIGH FOWLERS, SIDE RAILS UP TIMES TWO, BED IN LOWEST POSITION WITH AND SON AT BEDSIDE. PT EXPERIENCING LABORED, SHALLOW BREATHS WITH 15 L NON-REBREATHER AT THIS TIME. FAMILY ASKED TO VOICE ANY CONERNS OR QUESTIONS TO NURING STAFF.
--- NOTE | 2020-11-07 03:55 | NUR ---
PT. TEMP IS NOW 99.0 A AND RESPIRATIONS 16. PT IS STILL EXPERIENCING LABORED, SHALLOWED BREATHS ON 15 L NON-REBREATHER MASK ALONG WITH PERIODS OF APNEA.
--- NOTE | 2020-11-07 07:30 | NUR ---
PT BREATHING NOTED TO BE LABORED WITH A RR OF 12 WITH 5-10 SECONDS OF APNEA NOTED. SWELLING NOTED TO BLE WITH MOTTELING. MOTTELING NOTED TO BUE. HEART RATE NOTED TO BE REGULAR ON AUSCULTATION. PT DOES NOT RESPOND TO VERBAL OR TACTILE STIMULI.
[2020-11-07 08:00] VITALS: BP 90/12; TEMP 100.7
--- NOTE | 2020-11-07 08:30 | NUR ---
DR. BILLINGS AT PT'S BEDSIDE AT THIS TIME.
--- NOTE | 2020-11-07 08:45 | NUR ---
SPOKE WITH DR. BILLINGS ABOUT PT'S CURRENT STATUS. REC'D ORDERS TO GIVE THE MORPHINE EVERY HOUR AT LEAST EVERY 2 FOR BREATHING AND COMFORT. CLARIFIED ALL OTHER MEDS ARE STOPPED.
--- NOTE | 2020-11-07 09:00 | NUR ---
PT'S REMAINS AT BEDSIDE. MORPHINE 2MG IVSP GIVEN AT THIS TIME PER MD ORDERS. PT'S FAMILY EDUCATED ON HOW THE MORPHINE WORKS. HAD PT'S WATCH PT'S BREATHING PRIOR TO MORPHINE AND AFTER. PT'S VERBALIZED UNDERSTANDING. WILL CON'T TO MONITOR PT.
--- NOTE | 2020-11-07 09:10 | NUR ---
PT'S BREATHING NOTED TO CON'T TO BE LABORED BUT AT A MORE EVEN RATE.
--- NOTE | 2020-11-07 10:30 | NUR ---
PT BREATHING CON'T TO BE LABORED. PT'S AND DAUGHTER AT BEDSIDE.
--- NOTE | 2020-11-07 12:00 | NUR ---
PT BREATHING NOTED TO BE LABORED AND RAPID, MORPHINE 2MG IVSP GIVEN AT THIS TIME. WILL CON'T TO MONITOR PT. PT'S AND DAUGHTER REMAIN AT BEDSIDE.
--- NOTE | 2020-11-07 12:55 | NUR ---
PT'S FAMILY CALLED TO DESK AND REQUESTED I COME TO ROOM. PT'S STATES "IF WE TAKE THAT OFF WOULD THAT HELP ME TO PASS ON?" EDUCATED HER THAT YES IT PROBABLY WOULD. SHE THEN STATES "SO THAT'S WHAT IS BREATHING FOR HIM" EDUCATED HER THAT NO IT IS NOT BREATHING FOR HIM BUT THAT IT IS GIVING HIM THE OXYGEN THAT HE IS NOT TAKING IN AND IT IS MORE FOR COMFORT MEASURES. PT'S VERBALIZED UNDERSTANDING.
--- NOTE | 2020-11-07 13:00 | NUR ---
PT NOTED TO HAVE SHALLOW RAPID RR UPON ENTERING PT'S ROOM. INFORMED FAMILY THAT IT WOULDN'T BE MUCH LONGER. CALLED PT'S SON SULTANA TO NOTIFY HIM OF HIS DAD'S STATUS.
--- NOTE | 2020-11-07 13:11 | NUR ---
REINALDO JONES, RN AND I AT PT'S BEDSIDE. MORPHINE 2MG IVSP GIVEN FOR RESPIRATORY DISTRESS.
--- NOTE | 2020-11-07 13:25 | NUR ---
NOTED THAT PT'S SATS ON PULSE OX MONITOR WAS 66%. WENT TO PT'S ROOM PT RESTING IN BED WITH AGONAL REPS NOTED. AND FAMILY AT BS
--- NOTE | 2020-11-07 13:30 | NUR ---
PT NOTED TO HAVE NO RR OR HR AT THIS TIME. NON REBREATHER REMAINS IN PLACE. DR BILLINGS NOTIFIED. FAMILY REMAINS AT .
--- NOTE | 2020-11-07 13:33 | NUR ---
DR BILLINGS AT . QUESTIONS ANSWERED BY TO FMAILY MEMBERS. OFFERED ASSISTANCE TO FAMILY AT THIS TIME. ALL STATED NOTHING NEEDED AT THIS TIME. DR BILLINGS GAVE VERBAL OK FOR OTHER IMMEDIATE FAMILY MEMEBERS TO COME TO PT'S ROOM BUT FOR FAMILY MEMEBERS TO ROTATE OUT. FAMILY AT VERBALIZED UNDERSTANDING.
--- NOTE | 2020-11-07 14:00 | NUR ---
[facility] CALLED AT THIS TIME. PT NOT CANIDATE AT THIS TIME FOR ORGAN DONATION. REF NUMBER [id number]
--- NOTE | 2020-11-07 15:15 | NUR ---
[facility] NOTIFIED PER THE FAMILYS REQUEST .
--- NOTE | 2020-11-07 16:00 | NUR ---
[facility] HERE TO RETRIEVE PT'S BODY. IV AND YUNG LEFT IN PLACE. HOME REPORTS THEY WILL REMOVE THOSE ITEMS. PT'S FAMILY TOOK ALL OF PT'S PERSONAL BELONGINGS WITH THEM.
== END 2020-11-07 16:15 | disposition expired | DRG 871 ==
LOC: ED 09:17 → MED/SURG 11:20
PROVIDERS: Internal Medicine Endocrinology, Diabetes & Metabolism; ADMIT Emergency Medicine; ATTEND Internal Medicine
DX: A41.51 Sepsis due to Escherichia coli [E. coli] (principal); J69.0 Pneumonitis due to inhalation of food and vomit; J96.01 Acute respiratory failure with hypoxia; N39.0 Urinary tract infection, site not specified; N17.8 Other acute kidney failure; B96.20 Unspecified Escherichia coli [E. coli] as the cause of diseases classified elsewhere; B96.4 Proteus (mirabilis) (morganii) as the cause of diseases classified elsewhere; L89.159 Pressure ulcer of sacral region, unspecified stage; G30.8 Other Alzheimer's disease; F02.80 Dementia in other diseases classified elsewhere, unspecified severity, without behavioral disturbance, psychotic disturbance, mood disturbance, and anxiety; R13.19 Other dysphagia; I10 Essential (primary) hypertension; K21.9 Gastro-esophageal reflux disease without esophagitis; E11.9 Type 2 diabetes mellitus without complications; E87.6 Hypokalemia; Z93.1 Gastrostomy status; I46.9 Cardiac arrest, cause unspecified; R19.7 Diarrhea, unspecified
CPT/HCPCS: 36415; 51702; 80048; 80053; 80307; 81000; 82570; 83605; 83880; 84300; 84484; 85007; 85027; 85610; 85730; 87040; 87077; 87086; 87088; 87186; 87205; 87635; 93005; 94640; 94664; 94760; 96360; 96365; 96366; 99284; J0132; J0360; J2060; J2185; J2270; J2543; J3370; J3490; U0003